=== PATIENT | male | born 1995 | race Caucasian/White ===

== ENCOUNTER 2018-04-01 08:15 | Emergency (ER) | payer BC ==
[2018-04-01] MEDS ORDERED: MAGNE/ALUM HYDROXD 30 ML UCUP ONE (08:37)
[2018-04-01 09:01] LABS: Absolute Lymphocytes (CBC) 1.9 K/uL (0.7-4.9); Absolute Monocytes 0.6 K/uL (0.1-1.3); Basophils % 0.7 % (0-1.3); Eosinophils % 1.7 % (0-4.4); Hematocrit 44.1 % (39.6-49.0); Lymphocytes % 28.4 % (15.3-44.8); MCH 30.9 pg (27.0-35.0); MCV 90.8 fL (80-100); MPV 8.2 fL (7.6-11.3); Monocytes % 8.4 % (3.3-12.3); RBC Red Blood Cell Count 4.86 M/uL (4.33-5.43)
[2018-04-01 09:23] LABS: ALT/SGPT 14 U/L (12-78); AST/SGOT 9 U/L (15-37); Albumin 4.2 g/dL (3.4-5.0); Alkaline Phosphatase 75 U/L (45-117); BUN Blood Urea Nitrogen 11 mg/dL (7-18); Bicarbonate 28 mmol/L (21-32); Bilirubin Direct 0.1 mg/dL (0-0.2); Bilirubin Total 0.4 mg/dL (0.2-1.0); Glucose Level 90 mg/dL (74-106); Lipase 278 U/L (73-393); Potassium 3.9 mmol/L (3.5-5.1); Protein, Total 7.7 g/dL (6.4-8.2); Sodium Level 141 mmol/L (136-145)
--- NOTE | 2018-04-01 09:39 | ER ---
Nurse's Notes [facility] Name: Osiel Elmore Age: 22 yrs Sex: Male : 1995 Arrival Date: 04/01/2018 Time: 08:18 Bed 15 Private MD: Buddy Andre Diagnosis: Upper abdominal pain, unspecified;Gastro-esophageal reflux disease Presentation: 04/01 08:25 Presenting complaint: Patient states: intermittent, RUQ pain that began 6-8 days ago. ss Pt reports he was seen by his PCP, had labs drawn and ultrasound of his gallbladder, which were negative. Pt was then referred to a GI specialist, but reports his pain was worse this morning, so he came to be evaluated. Transition of care: patient was not received from another setting of care. Onset of symptoms was March 24, 2018. Risk Assessment: Do you want to hurt yourself or someone else? Patient reports no desire to harm self or others. Initial Sepsis Screen: Does the patient meet any 2 criteria? No. Patient's initial sepsis screen is negative. Does the patient have a suspected source of infection? No. Patient's initial sepsis screen is negative. Care prior to arrival: None. 08:25 Method Of Arrival: Ambulatory 08:25 Acuity: PAVEL 3 ss Historical: - Allergies: 08:30 No Known Allergies; ss - Home Meds: 08:30 Valtrex Oral [Active]; ss - PMHx: 08:30 GERD; ss - PSHx: 08:30 pyloric stenosis correction at 2 months old; ss - Immunization history:: Adult Immunizations up to date. - Social history:: Smoking status: Patient uses tobacco products, smokes one-half pack cigarettes per day. - Ebola Screening: : Patient denies exposure to infectious person Patient denies travel to an Ebola-affected area in the 21 days before illness onset. - Family history:: not pertinent. - Hospitalizations: : No recent hospitalization is reported. Screenin:25 Abuse screen: Denies threats or abuse. Nutritional screening: No deficits noted. rb1 Tuberculosis screening: No symptoms or risk factors identified. Fall Risk None identified. Assessment: 08:25 General: Appears uncomfortable, slender, Behavior is calm, cooperative, Denies fever. rb1 Pain: Complains of pain in right upper quadrant Pain currently is 5 out of 10 on a pain scale. Neuro: Level of Consciousness is awake, alert, obeys commands, Oriented to person, place, time, situation. Cardiovascular: Capillary refill < 3 seconds is brisk in bilateral fingers. Respiratory: Airway is patent Respiratory effort is even, unlabored, Respiratory pattern is regular, symmetrical. GI: Bowel sounds present X 4 quads. Abd is soft Abdomen is tender to palpation in right upper quadrant Reports nausea, vomiting, since this morning. : No signs and/or symptoms were reported regarding the genitourinary system. Derm: Skin is pink, warm \T\ dry. Musculoskeletal: Range of motion: intact in all extremities. 09:23 Reassessment: Patient appears in no apparent distress at this time. Patient and/or rb1 family updated on plan of care and expected duration. Pain level reassessed. Patient is alert, oriented x 3, equal unlabored respirations, skin warm/dry/pink. Patient states symptoms have improved. 09:48 Reassessment: Dr. Grimaldo is at bedside. rb1 Vital Signs: 08:25 BP 126 / 85; Pulse 53; Resp 16; Temp 97.7(O); Pulse Ox 100% on R/A; Weight 56.7 kg (R); rb1 Height 5 ft. 10 in. (177.80 cm) (R); Pain 5/10; 09:22 BP 126 / 72; Pulse 54; Resp 16; Pulse Ox 100% on R/A; rb1 08:25 Body Mass Index 17.94 (56.70 kg, 177.80 cm) rb1 ED Course: 08:18 Patient arrived in ED. sb2 08:19 Buddy Andre MD is Private Physician. sb2 08:22 Evaristo Grimaldo MD is Attending Physician. rn 08:25 Arm band placed on right wrist. rb1 08:25 Patient has correct armband on for positive identification. Bed in low position. Call rb1 light in reach. Side rails up X 1. Pulse ox on. NIBP on. 08:29 Triage completed. ss 08:32 Amanda Garza, YAMILA is Primary Nurse. rb1 09:58 No provider procedures requiring assistance completed. IV discontinued, intact, rb1 bleeding controlled, No redness/swelling at site. Pressure dressing applied. Administered Medications: 08:35 Drug: GI Cocktail without - (Maalox Suspension 30 ml, Lidocaine Liquid 2 % 15 rb1 ml) Route: PO; 08:53 Follow up: Response: No adverse reaction; Marked relief of symptoms rb1 Outcome: 09:37 Discharge ordered by . rn 09:58 Discharged to home ambulatory, with family. rb1 :58 Condition: stable 09:58 Discharge instructions given to patient, Instructed on discharge instructions, follow up and referral plans. Demonstrated understanding of instructions, follow-up care, Prescriptions given X none 10:00 Patient left the ED. rb1 Signatures: Evaristo Grimaldo MD MD rn Smirch, Shelby, RN RN ss Amanda Garza RN RN rb1 Alessandra Sibley sb2
--- NOTE | 2018-04-01 09:39 | EDPHYS ---
Physician Documentation [facility] Name: Osiel Elmore Age: 22 yrs Sex: Male : 1995 Arrival Date: 04/01/2018 Time: 08:18 Bed 15 Private MD: Buddy Andre ED Physician Evaristo Grimaldo HPI: 04/01 08:55 This 22 yrs old Male presents to ER via Ambulatory with complaints of rn Abdominal Pain. 08:55 The patient presents with abdominal pain in the epigastric area, in the right upper rn quadrant. Onset: The symptoms/episode began/occurred 6 day(s) ago. The symptoms do not radiate. Associated signs and symptoms: Pertinent positives: diarrhea, Pertinent negatives: dysuria, fever, hematuria, testicular pain, vomiting. The symptoms are described as achy, intermittent. Modifying factors: The symptoms are alleviated by nothing, the symptoms are aggravated by food, touching the area. Severity of pain: At its worst the pain was mild in the emergency department the pain has improved. The patient has experienced similar episodes in the past. Reports RUQ/epigastric abd pain for 6 days, seen by pcp, u/s performed 4 days ago as outpt, negative, no fever, + diarrhea, non-bloody/not dark/black. Has has acid problems "for long time", doesn't take his antacids daily, pain worse approx 30 min after eating and in morning when wakes up.. Historical: - Allergies: 08:30 No Known Allergies; ss - Home Meds: 08:30 Valtrex Oral [Active]; ss - PMHx: 08:30 GERD; ss - PSHx: 08:30 pyloric stenosis correction at 2 months old; ss - Immunization history:: Adult Immunizations up to date. - Social history:: Smoking status: Patient uses tobacco products, smokes one-half pack cigarettes per day. - Ebola Screening: : Patient denies exposure to infectious person Patient denies travel to an Ebola-affected area in the 21 days before illness onset. - Family history:: not pertinent. - Hospitalizations: : No recent hospitalization is reported. ROS: 08:55 Constitutional: Negative for fever, chills, and weight loss, Eyes: Negative for injury, rn pain, redness, and discharge, Cardiovascular: Negative for chest pain, palpitations, and edema, Respiratory: Negative for shortness of breath, cough, wheezing, and pleuritic chest pain, Abdomen/GI: Negative for nausea, vomiting, and constipation, Back: Negative for injury and pain, MS/Extremity: Negative for injury and deformity, Skin: Negative for injury, rash, and discoloration, Neuro: Negative for headache, weakness, numbness, tingling, and seizure. Exam: 08:55 Constitutional: This is a well developed, well nourished patient who is awake, alert, rn and in no acute distress. Head/Face: Normocephalic, atraumatic. Eyes: Pupils equal round and reactive to light, extra-ocular motions intact. Lids and lashes normal. Conjunctiva and sclera are non-icteric and not injected. Cornea within normal limits. Periorbital areas with no swelling, redness, or edema. Cardiovascular: Regular rate and rhythm with a normal S1 and S2. No gallops, murmurs, or rubs. Normal PMI, no JVD. No pulse deficits. Respiratory: Lungs have equal breath sounds bilaterally, clear to auscultation and percussion. No rales, rhonchi or wheezes noted. No increased work of breathing, no retractions or nasal flaring. Abdomen/GI: Soft, non-tender, with normal bowel sounds. No distension or tympany. No guarding or rebound. No evidence of tenderness throughout. MS/ Extremity: Pulses equal, no cyanosis. Neurovascular intact. Full, normal range of motion. Equal circumference. Neuro: Awake and alert, GCS 15 Vital Signs: 08:25 BP 126 / 85; Pulse 53; Resp 16; Temp 97.7(O); Pulse Ox 100% on R/A; Weight 56.7 kg (R); rb1 Height 5 ft. 10 in. (177.80 cm) (R); Pain 5/10; 09:22 BP 126 / 72; Pulse 54; Resp 16; Pulse Ox 100% on R/A; rb1 08:25 Body Mass Index 17.94 (56.70 kg, 177.80 cm) rb1 MDM: 08:22 Patient medically screened. rn 08:32 ED course: Neg U/S on 03/28/2018.. rn 09:36 Differential diagnosis: gastritis, gastroesophageal reflux disease, Peptic Ulcer rn Disease. Data reviewed: vital signs, nurses notes, lab test result(s), and as a result, I will discharge patient. Counseling: I had a detailed discussion with the patient and/or guardian regarding: the historical points, exam findings, and any diagnostic results supporting the discharge/admit diagnosis, lab results, the need for outpatient follow up, to return to the emergency department if symptoms worsen or persist or if there are any questions or concerns that arise at home. Special discussion: I discussed with the patient/guardian in detail that at this point there is no indication for admission to the hospital. It is understood, however, that if the symptoms persist or worsen the patient needs to return immediately for re-evaluation. Based on the history and exam findings, there is no indication for further emergent testing or inpatient evaluation. I discussed with the patient/guardian the need to see the hotel maintenance technician for further evaluation of the symptoms. ED course: Has f/u with GI, most likely PUD or ulcer in this patient with hx of GERD and not taking his antacids, return precautions given and understood. . 04/01 08:31 Order name: Basic Metabolic Panel; Complete Time: 09:36 rn 04/01 08:31 Order name: CBC with Diff; Complete Time: 09:10 rn 04/01 08:31 Order name: Hepatic Function; Complete Time: 09:36 rn 04/01 08:31 Order name: Lipase; Complete Time: 09:36 rn 04/01 08:31 Order name: IV Saline Lock; Complete Time: 08:59 rn 04/01 08:31 Order name: Labs collected and sent; Complete Time: 08:59 rn Administered Medications: 08:35 Drug: GI Cocktail without - (Maalox Suspension 30 ml, Lidocaine Liquid 2 % 15 rb1 ml) Route: PO; 08:53 Follow up: Response: No adverse reaction; Marked relief of symptoms rb1 Disposition: 04/01/18 09:37 Discharged to Home. Impression: Upper abdominal pain, unspecified, Gastro-esophageal reflux disease. - Condition is Stable. - Discharge Instructions: Abdominal Pain, Adult, Gastroesophageal Reflux Disease, Adult, Peptic Ulcer. - Medication Reconciliation Form, Thank You Letter, Antibiotic Education, Prescription Opioid Use form. - Follow up: Private Physician; When: As needed; Reason: Recheck today's complaints, Re-evaluation by your physician. - Problem is new. - Symptoms have improved. Signatures: Dispatcher [employer] EDMS Grimaldo, Evaristo, MD MD rn Smirch, Matilda, RN RN ss Amanda Garza RN RN rb1 Corrections: (The following items were deleted from the chart) 10:00 09:37 04/01/2018 09:37 Discharged to Home. Impression: Upper abdominal pain, rb1 unspecified; Gastro-esophageal reflux disease. Condition is Stable. Forms are Medication Reconciliation Form, Thank You Letter, Antibiotic Education, Prescription Opioid Use. Follow up: Private Physician; When: As needed; Reason: Recheck today's complaints, Re-evaluation by your physician. Problem is new. Symptoms have improved. rn
== END 2018-04-01 10:00 | disposition home or self-care (01) ==
LOC: ER 08:15
DX: R10.13 Epigastric pain (principal); K21.9 Gastro-esophageal reflux disease without esophagitis; F17.210 Nicotine dependence, cigarettes, uncomplicated
CPT/HCPCS: 36415; 80048; 80076; 83690; 85025; 99283

== ENCOUNTER 2024-02-17 06:00 | Emergency (ER) | payer BC, SELFPAY ==
--- OUTSIDE RECORDS SUMMARY | 2024-02-17 06:04 | XMS REPORT | Continuity of Care Document ---
Author Name Unknown Address [address] [facility] [address]. [address] [place] [address] [facility] thconnect Address [address] [facility]. 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 Name Role Phone MD Roula Primary Care Physician Unavailab sydney [email or web address] Attending Clinician Unavailable [email or web address] Attending Clinician Unavailable Alden Reid MA Attending Clinician Unavailrosi Lino MD, Myranda Attending Clinician Doctor Unassigned, [place] Attending Clinician U STANISLAV Thompson Attending Clinician Unavailab ALON Artis Attending Clinician UnavailALON Parikh Attending Clinician Unavailab RAE Ho Attending Clinician Unavailable Ramon DRISCOLL, Naveed Kwong Attending Clinician Unavaila Santana Mesa MA Attending Clinician Unava Piper Llanes LVN Attending Clinician UnaRae Watkins LCSW Attending Clinician [phone] [facility] Attending Clinician Unavailable Deepak Perez MD Attending Clinician DEEPAK PEREZ Attending Clinician Unavailrosi Maxwell RN, Alisha Ayala Attending Clinician Louise Albert MD, Leanne Attending Clinician Luh Perez CMA Attending Clinician Hill Mejia MD, Roula Attending Clinician Wilfred Tsai MD Attending Clinician Unavaila raissa Fernández MD, Lizeth Funes Attending Clinician [phone] CAPRICE BULLARD Attending Clinician Unavailable DAYANA ESQUIVEL Attending Clinician Unavailable JEANIE HARRISON Attending Clinician Unavailable Lab, Adc Fam Pob I Attending Clinician Unavailab Jeanie Cohn Attending Clinician STANISLAV GONZALES Admitting Clinician Unavailab DEEPAK Mandel Admitting Clinician Unavailrosi Albert MD, Leanne Unavailable Roberto MOTTA, Roula Unavailable [phone] Payers Payer Name Policy Type Policy Number Effective Date Expirati on Date Source [place] 0- 100% P [id number] 2022 00:00:00 2023 00:00:00 [place] 0- 100% P [id number] 2022 00:00:00 2023 00:00:00 [place] 0- 100% S [id number] 2022 00:00:00 2023 00:00:00 [place] White 0- 100% P [id number] 2022 00:00:00 [facility] [id number] 2019 00:00:00 Problems Condition Name Condition Details Condition Category Status Onset Date Resolution Date Last Treatment Date Treating Clinician Comments Source Special screening examinatio n for other specified viral diseases Condition Active 04-11 00:00: 00 2023-04-11 12:31:31 Leanne Albert [facility] Adult Medicin e Blood in stool Condition Active 10-08 00:00: 00 2022-10-08 09:30:10 Roberto, Roula [facility] HIV infection Condition Active 2021-09 00:00: 00 2022-10-08 09:16:46 Roberto, Roula [facility] Anxiety disorder NOS Condition Active 2021-09 00:00: 00 2022-07-09 13:21:44 Roberto, Roula [facility] Preventive health care, adult Condition Active 2021-09 00:00: 00 2022-07-09 13:21:44 Roberto, Roula [facility] Medication , long-term use Condition Active 2021-09 00:00: 00 2022-07-09 13:21:44 Roberto, Roula [facility] Chronic diarrhea Condition Active 2021-09 00:00: 00 2022-10-08 09:16:46 Roberto, Roula [facility] Gastritis Condition Active 2021-09 00:00: 00 2022-10-08 09:16:46 Roberto, Roula [facility] No known active problems No known active problems Disease Leandra Rojas History of Past Illness Condition Name Condition Details Condition Category Status Onset Date Resolution Date Last Treatment Date Treating Clinician Comments Source Nausea Condition Inactiv e 10-08 00:00: 00 2023-04-11 00:00:00 2023-04-11 12:31:31 Leanne Albert [facility] Allergies, Adverse Reactions, Alerts Allergy Name Allergy Type Status Severity Reaction(s) Onset Date Inactive Date Treating Clinician Comments Source Iodine Propensi ty to adverse reaction s Active Itching 2022-09 00:00: 00 [facility] IODINE DRUG INGREDI Active High Hives 2022-09 00:00: 00 [facility] NO KNOWN ALLERGIE S Drug Class Active [facility] Social History Social Habit Start Date Stop Date Quantity Comments Source Exposure to SARS-CoV-2 (event) Not sure Leandra miller History of tobacco use Passive smoker [facility] Gender identity [facility] Alcohol intake 2023-07-29 00:00:00 2023-07-29 00:00:00 Lifetime non-drinker (finding) [facility] Alcoholic beverage intake 2023-07-29 00:00:00 2023-07-29 00:00:00 Lifetime non-drinker (finding) [facility] Cigarettes smoked current (pack per day) - Reported 2023-05-10 00:00:00 2023-05-10 00:00:00 [facility] Tobacco use and exposure 2023-05-10 00:00:00 2023-05-10 00:00:00 Smokeless tobacco non-user [facility] History of Social function 2023-05-02 00:00:00 2023-05-02 00:00:00 [facility] is there any chance that you could be ? 2023-04-11 12:16:46 2023-04-11 12:16:46 No [facility] PHQ2 Questionairre Score 2023-04-11 12:16:46 2023-04-11 12:16:46 [facility] drug use 2023-04-11 12:16:46 2023-04-11 12:16:46 Currently [facility] social history reviewed E&M 2023-04-11 12:16:46 2023-04-11 12:16:46 reviewed today [facility] if the patient is using/has used a vaping item, Current, Former, Never Used, Not asked 2023-04-11 12:16:46 2023-04-11 12:16:46 No [facility] alcohol use 2023-04-11 12:16:46 2023-04-11 12:16:46 Currently [facility] albumin, serum 2023-02-21 16:13:00 2023-02-21 16:13:00 4.4 g/dL [facility] condom use 2022-10-08 08:47:42 2022-10-08 08:47:42 Sometimes [facility] number of sexual partners in last year 2022-10-08 08:47:42 2022-10-08 08:47:42 [facility] Ever had sexual intercourse? 2022-10-08 08:47:42 2022-10-08 08:47:42 Yes [facility] passive cigarette smoke exposure 2022-10-08 08:47:42 2022-10-08 08:47:42 LA32-8 [facility] tobacco use (cigarettes, cigar, chew, pipe) 2022-10-08 08:47:42 2022-10-08 08:47:42 Currently [facility] sexual orientation 2022-07-09 12:18:51 2022-07-09 12:18:51 Lesbian, bustamante or homosexual [facility] drug use, illicit, drug of choice 2022-07-09 12:18:51 2022-07-09 12:18:51 marijuana [facility] alcohol use, frequency 2022-07-09 12:18:51 2022-07-09 12:18:51 holidays/special occasions only [facility] 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 2022-06-18 10:33:44 2022-06-18 10:33:44 verse [facility] Category for Work 2022-06-18 10:33:44 2022-06-18 10:33:44 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 Ordering Clinician Indication Dosage Frequency Signature (SIG) Comments Components Source methylPREDN ISolone sodium succinate (SOLU-MEDRO L) injection 125 mg 2022-09 22:30: 00 06-21 22:30 :00 No 125mg 125 mg, Slow IV Push, ONCE, 1 dose, On Sat06/21/23 at 1730, Routine [facility] diphenhydrA MINE (BENADRYL) injection 25 mg 2022-09 21:45: 00 06-21 21:35 :00 No 25mg 25 mg, Slow IV Push, ONCE, 1 dose, On Sat06/21/23 at 1645, STAT [facility] iopamidol (ISOVUE 370-500 mL) injection 65 mL 2022-09 21:20: 00 06-21 21:21 :00 No [id number] 65mL 65 mL, Intravenou s, ONCE, 1 dose, On Sat06/21/23 at 1645, Routine [facility] NaCl 0.9% (NS) bolus infusion 1,000 mL 2022-09 21:15: 00 06-21 22:37 :00 No 1000mL at 999 mL/hr, 1,000 mL, IV Infusion, ONCE, 1 dose, On Sat06/21/23 at 1615, TYRONE [facility] ondansetron (ZOFRAN (PF)) injection 4 mg 2022-09 20:30: 00 06-21 21:35 :00 No 4mg 4 mg, Slow IV Push, ONCE, 1 dose, On Sat06/21/23 at 1530[facility] disintegrat ing tablet 2022-09 00:00: 00 Yes [id number] 4mg Take 1 tablet by mouth every 8 (eight) hours as needed for Nausea and Vomiting (N/V). [facility] amoxicillin -clavulanat e 875-125 mg per tablet 2022-09 00:00: 00 07-02 04:59 :00 No [id number] 1{tbl} Take 1 tablet by mouth every 12 (twelve) hours for 10 days. [facility] bictegrav-e mtricit-ten ofov ala 50-200-25 mg tablet 04-26 00:00: 00 Yes [id number] 1{tbl} Take 1 tablet by mouth in the morning. [facility] PAXLOVID (300/100) (NIRMATRELV IR-RITONAVI R) 20 x 150 MG & 10 x 100MG TBPK 04-11 00:00: 00 Yes Leanne Albert MD 3 Take 3 tablet by mouth twice a day Take all contents of ONE blister pack together as a single dose. Each blister pack = 3 tablets [facility] (ONDANSETRO N) 4 MG TBDP 1- 00:00: 00 Yes Roula Mejia MD 1 1 tablet on tongue twice a day only as needed for nausea or vomiting [facility] MYTESI (CROFELEMER ) 125 MG [facility] 2021-09 13:14: 39 Yes by mouth once a day [facility] BIKTARVY (BICTEGRAVI R-EMTRICITA B-TENOFOV) 50-200-25 MG TABS 2021-09 00:00: 00 Yes Roula Mejia MD 1 1 tablet by mouth once a day [facility] (PANTOPRAZO LE SODIUM) 40 MG [facility] 2021-09 00:00: 00 Yes Roula Mejia MD 1 1 tablet by mouth once a day before food [facility] VALACYCLOVI R HCL OR 2020-09 11:17: 27 06-19 00:00 :00 No 1g Take 1 g by mouth 2 times daily Leandra Rojas Valacyclovi r HCl 1 g oral Tablet 2020-09 00:00: 00 Yes [id number] 1000mg Take 1 tablet (1,000 mg total) by mouth 2 times daily Leandra Rojas Bictegravir -Emtricitab -Tenofov (Biktarvy) 50-200-25 MG oral Tablet 2018-09 00:00: 00 Yes Leandra Rojas Immunizations Ordered Immunization Name Filled Immunization Name Date Status Comments Source Twinrix (hep a/hep b) 2023-05-10 00:00:00 Completed [facility] Twinrix (hep a/hep b) 2023-05-10 00:00:00 Completed [facility] Twinrix (hep a/hep b) 2023-05-10 00:00:00 Completed [facility] Twinrix (hep a/hep b) 2023-05-10 00:00:00 Completed [facility] Twinrix (hep a/hep b) 2023-05-10 00:00:00 Completed [facility] Twinrix (hep a/hep b) 2023-05-10 00:00:00 Completed [facility] Twinrix (hep a/hep b) Unknown Completed [facility] Twinrix (hep a/hep b) Unknown Completed [facility] Twinrix (hep a/hep b) Unknown Completed [facility] Twinrix (hep a/hep b) Unknown Completed [facility] Twinrix (hep a/hep b) Unknown Completed [facility] Twinrix (hep a/hep b) Unknown Completed [facility] Twinrix (hep a/hep b) Unknown Completed [facility] Twinrix (hep a/hep b) Unknown Completed [facility] Twinrix (hep a/hep b) Unknown Completed [facility] Twinrix (hep a/hep b) Unknown Completed [facility] Vital Signs Vital Name Observation Time Observation Value Comments S ource Systolic blood pressure 2023-06-21 22:15:30 125 mm[Hg] [facility] Diastolic blood pressure 2023-06-21 22:15:30 78 mm[Hg] [facility] Heart rate 2023-06-21 22:15:30 81 /min [facility] Body temperature 2023-06-21 22:15:30 37.06 Katherin [facility] Respiratory rate 2023-06-21 22:15:30 16 /min [facility] Oxygen saturation in Arterial blood by Pulse oximetry 2023-06-21 22:00:00 97 /min [facility] Body height 2023-06-21 20:14:00 172.7 cm [facility] Body weight 2023-06-21 20:14:00 56.7 kg [facility] BMI 2023-06-21 20:14:00 19.01 kg/m2 [facility] Systolic blood pressure 2023-05-10 15:37:00 101 mm[Hg] [facility] Diastolic blood pressure 2023-05-10 15:37:00 65 mm[Hg] [facility] Heart rate 2023-05-10 15:37:00 74 /min [facility] Body temperature 2023-05-10 15:37:00 36.44 Katherin [facility] Respiratory rate 2023-05-10 15:37:00 20 /min [facility] Body height 2023-05-10 15:37:00 175.3 cm [facility] Body weight 2023-05-10 15:37:00 54.25 kg [facility] BMI 2023-05-10 15:37:00 17.66 kg/m2 [facility] Oxygen saturation in Arterial blood by Pulse oximetry 2023-05-10 15:37:00 98 /min [facility] Systolic blood pressure 2023-04-26 14:24:00 100 mm[Hg] [facility] Diastolic blood pressure 2023-04-26 14:24:00 59 mm[Hg] [facility] Heart rate 2023-04-26 14:24:00 61 /min [facility] Body temperature 2023-04-26 14:24:00 36.17 Katheirn [facility] Respiratory rate 2023-04-26 14:24:00 18 /min [facility] Body height 2023-04-26 14:24:00 177.8 cm [facility] Body weight 2023-04-26 14:24:00 55.838 kg [facility] BMI 2023-04-26 14:24:00 17.66 kg/m2 [facility] Oxygen saturation in Arterial blood by Pulse oximetry 2023-04-26 14:24:00 98 /min room air [facility] Systolic blood pressure 2021-06-19 15:35:00 104 mm[Hg] [facility]andra [facility] Diastolic blood pressure 2021-06-19 15:35:00 70 mm[Hg] Leandra Sharp ld Heart rate 2021-06-19 15:35:00 68 /min Jon campbell Seybold Body temperature 2021-06-19 15:35:00 36.5 Katherin Leandra angela Respiratory rate 2021-06-19 15:35:00 16 /min Leandra Rojas Body height 2021-06-19 15:35:00 175.3 cm Ann Rojas Body weight 2021-06-19 15:35:00 55.339 kg Ann Rojas BMI 2021-06-19 15:35:00 18.02 kg/m2 Ann Rojas height in centimeters E&M 2023-04-11 12:16:46 [facility]&M 2022-10-08 08:47:42 97.7 [degF] [facility] Diastolic blood pressure 2022-10-08 08:47:42 56 mm[Hg] [facility]olic blood [facility] 2022-10-08 08:47:42 117 mm[Hg] [facility] respiratory rate E&M 2022-10-08 08:47:42 14 /min [facility] pulse rate 2022-10-08 08:47:42 74 /[facility] BMI (body mass index) percentile 2022-10-08 08:47:42 n/a [facility] Body Mass Index (Ratio) 2022-10-08 08:47:42 18.73 kg/m2 [facility] weight E&M 2022-10-08 08:47:42 126.38 [lb_av] L [facility] weight in kilograms E&M 2022-10-08 08:47:42 57.45 kg [facility] temperature site 2022-10-08 08:47:42 oral [facility] height in centimeters E&M 2022-10-08 08:47:42 175.26 cm [facility] Diastolic blood pressure 2022-07-09 12:18:51 65 mm[Hg] [facility] Systolic blood pressure 2022-07-09 12:18:51 103 mm[Hg] [facility] rate E&M 2022-07-09 12:18:51 18 /min [facility] pulse rate 2022-07-09 12:18:51 67 /min [facility] temperature E&M 2022-07-09 12:18:51 98.1 [degF] [facility] BMI (body mass index) percentile 2022-07-09 12:18:51 n/a [facility] Body Mass Index (Ratio) 2022-07-09 12:18:51 17.99 kg/m2 [facility] weight E&M 2022-07-09 12:18:51 121.40 [lb_av] L egacy [facility] weight in kilograms E&M 2022-07-09 12:18:51 55.18 [facility] 2022-07-09 12:18:51 [facility] height in centimeters E&M 2022-07-09 12:18:51 [facility] blood pressure 2022-06-18 10:33:44 67 mm[Hg] [facility] Systolic blood pressure 2022-06-18 10:33:44 127 mm[Hg] [facility] respiratory rate E&M 2022-06-18 10:33:44 18 /min [facility] pulse rate 2022-06-18 10:33:44 73 /min [facility] 2022-06-18 10:33:44 oral [facility] temperature E&M 2022-06-18 10:33:44 98.3 [degF] [facility] BMI (body mass index) percentile 2022-06-18 10:33:44 n/a [facility] Body Mass Index (Ratio) 2022-06-18 10:33:44 17.93 kg/m2 [facility] weight E&M 2022-06-18 10:33:44 121 [lb_av] [facility] weight in kilograms E&M 2022-06-18 10:33:44 55 kg [facility] height in centimeters E&M 2022-06-18 10:33:44 175.26 [facility] Procedures Procedure Date / Time Performed Performing Clinician Source [facility] CONSENT FOR FREE TREATMENT FORM 2023-07-01 20:56:58 Doctor Unassigned, [place] [facility] CT ABDOMEN PELVIS W CONTRAST 2023-06-21 21:30:00 Stanislav Gonzales [facility] LIPASE 2023-06-21 21:08:[address] [facility] COMP. METABOLIC PANEL ([id number]) 2023-06-21 21:08:00 Stanislav Gonzales [facility] CBC WITH DIFF 2023-06-21 21:08:00 [facility] 2023-06-21 21:08:[address] Un [facility] ASSIGNMENT OF BENEFITS 2023-06-21 20:58:12 Docto r Unassigned, [place] [facility] CONSENT/REFUSAL FOR DIAGNOSIS AND TREATMENT 2023-06-21 20:02:30 Doctor Unassigned, [place] [facility] NOTICE OF PRIVACY PRACTICES 2023-06-21 20:01:59 Doctor Unassigned, [place] [facility] US ABDOMEN LIMITED 2023-05-15 17:50:34 Cullen Euceda [facility] XR KUB 2023-05-10 17:40:[address] [facility] TWINRIX (HEP A/HEP B)VACCINE 2023-05-10 16:35:50 Alon Euceda [facility] CONSENT/REFUSAL FOR DIAGNOSIS AND TREATMENT 2023-04-29 13:43:26 Doctor Unassigned, [place] [facility] ID NOW COVID-19- In House 2023-04-11 12:28:22 [facility] 2022-07-09 13:15:55 Roula Mejia [facility] Integrated Behavioral Health Assessment (IBH) 2022-07-09 13:15:55 Roula Mejia [facility] Prescription Assistance (HIV - URGENT) 2022-07-09 13:15:08 Roula Mejia [facility] Encounters Start Date/Time End Date/Time Encounter Type Admission Type Attending Clinicians Care Facility Care Department Encounter ID Source 2023-07-19 15:16:19 Outpatient HCN HCN [id number] [facility] 2023-05-20 08:39:02 Outpatient lc.msunil [facility] [id number] [facility] 2023-05-16 05:03:33 [facility] [id number] [facility] 2023-03-07 12:15:03 Outpatient lc.msunil [facility] [id number] [facility] 2023-03-06 15:33:03 Outpatient lc.msunil [facility] [id number] [facility] 2023-03-04 14:03:05 Outpatient lc.msunil [facility] [id number] [facility] 2023-02-21 14:35:09 Outpatient lc.msunil [facility] [id number] [facility] 2023-02-08 14:01:06 Outpatient lc.msunil [facility] [id number] [facility] 2023-01-25 11:07:09 Outpatient lc.msunil [facility] [id number] [facility] 2023-01-22 08:27:04 Outpatient lc.msunil [facility] [id number] [facility] 2023-01-04 10:01:04 Outpatient lc.msunil [facility] [id number] [facility] 2023-01-02 06:29:04 Outpatient lc.msunil [facility] [id number] [facility] 2022-11-19 16:49:02 Outpatient lc.msunil [facility] [id number] [facility] 2022-11-08 09:31:17 Outpatient lc.msunil [facility] [id number] [facility] 2022-10-04 15:59:04 Outpatient lc.msunil [facility] [id number] [facility] 2022-07-31 09:49:10 Outpatient lc.msunil [facility] [id number] [facility] 2022-07-16 16:53:03 Outpatient lc.msunil [facility] [id number] [facility] 2022-07-13 12:47:08 Outpatient lc.msunil [facility] [id number] [facility] 2022-07-05 10:55:10 Outpatient lc.nyarp [facility] [id number] [facility] 2022-06-26 08:59:05 Outpatient lc.nyarp [facility] [id number] [facility] 2022-06-19 15:11:30 Outpatient lc.nyarp [facility] [id number] [facility] 2022-06-15 14:33:06 Outpatient lc.nyarp [facility] [id number] [facility] 2022-06-14 14:43:07 Outpatient [facility] [id number] [facility] 2024-01-07 00:00:00 2024-02-14 12:21:21 Case Management Alden Reid [facility] 1..114 [id number] [facility] 2023-12-17 00:00:00 2023-12-17 00:00:00 Case Management Alden Reid [facility] [id number] [id number] [facility] 2023-11-29 00:00:00 2023-11-29 00:00:00 Case Management Alden Reid [facility] [id number] [facility] 2023-07-29 00:00:00 2023-07-29 00:00:00 Outpatient [facility] [id number] [facility] 2023-07-12 00:00:00 2023-07-12 00:00:00 Telephone Myranda Lino [facility] [id number] [id number] [facility] 2023-07-09 00:00:00 2023-07-09 00:00:00 Case Management Alden Reid [facility] 1..114 [id number] [facility] 2023-07-01 00:00:00 2023-07-01 00:00:00 Outpatient [facility] [id number] [facility] 2023-07-01 00:00:00 2023-07-01 00:00:00 Orders Only Doctor Unassigned, [place] [facility] 1..114 [id number] [facility] 2023-06-21 15:16:00 2023-06-21 18:53:00 Emergency X ADEBRANDON OGIL [facility] ERT [id number] [facility] 2023-06-21 15:16:00 2023-06-21 18:53:00 Emergency AderiBrandon raymondil [facility] 1..114 350.1.13.10 4.2.7.2.686 [id number] [facility] 2023-06-21 16:00:00 2023-06-21 16:00:00 Outpatient ALON ACEVEDO [facility]RI[facility] [id number] [facility] 2023-06-06 11:00:00 2023-06-06 11:00:00 Outpatient RAE SHANNON [facility] [id number] [facility] 2023-06-06 00:00:00 2023-06-06 00:00:00 Case Management Alden Reid [facility] 1.2.840.114 350.1.13.10 4.2.7.2.686 [id number] [facility] 2023-06-06 00:00:00 2023-06-06 00:00:00 Case Management Naveed Navarro [facility] 1.2.840.114 350.1.13.10 4.2.7.2.686 [id number] [facility] 2023-06-04 00:00:00 2023-06-04 00:00:00 Case Management Yoni [facility] 1.2.840.114 350.1.13.10 4.2.7.2.686 [id number] [facility] 2023-05-16 00:00:00 2023-05-16 00:00:00 Case Management Naveed Navarro [facility] 1.2.840.114 350.1.13.10 4.2.7.2.686 [id number] [facility] 2023-05-16 00:00:00 2023-05-16 00:00:00 Case Management Yoni [facility] 1.2.840.114 350.1.13.10 4.2.7.2.686 [id number] [facility] 2023-05-15 12:32:38 2023-05-15 23:59:00 Outpatient ALON ACEVEDO [facility] [id number] [facility] 2023-05-15 12:32:38 2023-05-15 23:59:00 Hospital Encounter Ok [facility] 1.2.840.114 350.1.13.10 4.2.7.2.686 [id number] [facility] 2023-05-10 12:07:43 2023-05-10 23:59:00 Hospital Encounter [facility] 1.2.840.114 350.1.13.10 4.2.7.2.686 [id number] [facility] 2023-05-10 10:30:00 2023-05-10 11:00:00 [facility] 1.2.840.114 350.1.13.10 4.2.7.2.686 [id number] [id number] [facility] 2023-05-10 10:30:00 2023-05-10 10:30:00 [facility] [id number] [facility] 2023-05-10 00:00:00 2023-05-10 00:00:00 [facility] 1.2.840.114 350.1.13.10 4.2.7.2.686 [id number] [facility] 2023-05-09 00:00:00 2023-05-09 00:00:00 Case Management [facility] 1.2.840.114 350.1.13.10 4.2.7.2.686 [id number] [facility] 2023-05-07 00:00:00 2023-05-07 00:00:00 Case Management Santana Vallejo [facility] 1.2.840.114 350.1.13.10 4.2.7.2.686 [id number] [facility] 2023-05-07 00:00:00 2023-05-07 00:00:00 Case Management Piper Neumann [facility] 1.0.114 350.1.13.10 4.2.7.2.686 [id number] [id number] [facility] 2023-05-02 09:00:00 2023-05-02 10:00:00 Office Visit Rae Doss [facility] 1..114 350.1.13.10 4.2.7.2.686 [id number] 089 [id number] [facility] 2023-05-02 09:00:00 2023-05-02 09:00:00 Outpatient RAE SHANNON [facility] [id number] [facility] 2023-04-29 08:00:00 2023-04-29 08:15:00 [employer] C[employer] Visit [facility] Alon Euceda [facility] 1..114 350.1.13.10 4.2.7.2.686 [id number] [facility] 2023-04-29 08:00:00 2023-04-29 08:00:00 [facility] [id number] [facility] 2023-04-29 00:00:00 2023-04-29 00:00:00 Orders Only Doctor Unassigned, [place] [facility] 1.0.114 350.1.13.10 4.2.7.2.686 [id number] [facility] 2023-04-28 08:46:00 2023-04-28 23:59:00 Hospital Encounter Deepak Perez [facility] 1.0.114 350.1.13.10 4.2.7.2.686 [id number] [facility] 2023-04-28 00:00:00 2023-04-28 23:59:00 Outpatient R DEEPAK PEREZ [facility] [id number] [facility] 2023-04-26 12:30:00 2023-04-26 12:45:00 [employer] Visit [facility] 1.840.114 350.1.13.10 4.2.7.2.686 [id number] [facility] 2023-04-26 09:00:00 2023-04-26 10:00:00 [facility] 1..114 350.1.13.10 4.2.7.2.686 [id number] [facility] 2023-04-26 09:00:00 2023-04-26 09:00:00 Outpatient R [facility] [id number] [facility] 2023-04-26 00:00:00 2023-04-26 00:00:00 Case Management Naveed Navarro [facility] 1.0.114 350.1.13.10 4.2.7.2.686 [id number] [id number] [facility] 2023-04-26 00:00:00 2023-04-26 00:00:00 Case Management Alden Reid [facility] 1.840.114 350.1.13.10 4.2.7.2.686 [id number] [facility] 2023-04-23 00:00:00 2023-04-23 00:00:00 Case Management Alisha Maxwell R [facility] 1.840.114 350.1.13.10 4.2.7.2.686 [id number] [id number] [facility] 2023-04-11 00:00:00 2023-04-11 00:00:00 In-person encounter Leanne Albert Blanca [facility] Adult Medicine Encounter/ [id number] [facility] 2023-04-11 00:00:00 2023-04-11 00:00:00 In-person encounter Leanne Albert Blanca [facility] Adult Medicine [id number] [facility] 2022-10-08 00:00:00 2022-10-08 00:00:00 In-person encounter Roula Mejia, Yoselin Perez, Mara Thomas, Breana Rosa [facility] Adult Medicine [id number] [facility]22-[facility] 00:00:00 2022-10-08 00:00:00 In-person encounter Roula Mejia Valencia Hawkins, Terrnisha [facility] Adult Medicine Encounter/ [id number] [facility] 2022-07-09 00:00:00 2022-07-09 00:00:00 In-person encounter Roula Mejia Angela Velazquez, Barbara Demarco, Debbie Moran Jameka [facility] Adult Medicine [id number] [facility] 2022-07-09 00:00:00 2022-07-09 00:00:00 In-person encounter Roula Mejia Valencia Armstrong, Jameka [facility] Adult Medicine Encounter/ [id number] [facility] 2022-06-18 00:00:00 2022-06-20 00:00:00 In-person encounter Wilfred Tsai Jameka [facility] Adult Medicine Encounter/ [id number] [facility] 2021-06-19 10:33:56 2021-06-19 11:03:56 Office Visit Lizeth Fernández 1.2.840.114 350.1.13.13 1.2.7.2.686 [id number] Leandra Rojas 2021-06-19 09:30:00 2021-06-19 09:30:00 Outpatient CAPRICE RAMIREZ [facility] [id number] [facility] 2020-12-22 09:30:00 2020-12-22 09:30:00 Outpatient DAYANA ESQUIVEL [id number] Leandra Rojas 2020-08-13 17:40:00 2020-08-13 17:40:00 Outpatient Lucy [facility] [id number] [facility] 2020-08-13 17:16:07 2020-08-13 17:36:07 Laboratory Only Lab, Adc Fam Pob Dot [facility] Office Building One 1.840.114 350.1.13.10 4.2.7.2.686 [id number] [facility] 2020-08-13 00:00:00 2020-08-13 00:00:00 Letter (Out) Doctor Unassigned, [place] [facility] 1.840.114 350.1.13.10 4.2.7.2.686 [id number] [facility] Results Test Description Test Time Test Comments Results Result Co mments Source [facility] 21:36:09* Test Item Value Reference Range Interpretation Comme nts LIPASE (test code = 2326605352) 44 U/L 0-220 Lab Interpretation (test cod e = 09524-4) Normal [facility] WITH [id number] 21:25:05* Test Item Value Reference Range Interpretation Comme nts WBC (test code = 6690-2) 11.36 See_Comment H [Automated messa ge] The system which generated this result transmitted reference range: 4.20 - 10.70 10*3/?L. The reference range was not used to interpret this result as normal/abnormal. RBC (test code = 789-8) 4.71 See_Comment [Automated messa ge] The system which generated this result transmitted reference range: 4.26 - 5.52 10*6/?L. The reference range was not used to interpret this result as normal/abnormal. HGB (test code = 718-7) 14.7 g/dL 12.2-16.4 HCT (test code = 4544-3) 43.7 % 38.4-49.3 MCV (test code = 787-2) 92.8 fL 81.7-95.6 MCH (test code = 785-6) 31.2 pg 26.1-32.7 MCHC (test code = 786-4) 33.6 g/dL 31.2-35.0 RDW-SD (test code = 75669-8) 44.0 fL 38.5-51.6 RDW-CV (test code = 788-0) 12.8 % 12.1-15.4 PLT (test code = 777-3) 248 See_Comment [Automated Recondoa ge] The system which generated this result transmitted reference range: 150 - 328 10*3/?L. The reference range was not used to interpret this result as normal/abnormal. MPV (test code = 85722-7) 9.5 fL 9.8-13.0 L NRBC/100 WBC (test code = 2376589738) 0.0 See_Comment [Automated Definicare ssage] The system which generated this result transmitted reference range: 0.0 - 10.0 /100 WBCs. The reference range was not used to interpret this result as normal/abnormal. NRBC x10^3 (test code = 9359513086) See_Comment [Automated Recondoa ge] The system which generated this result transmitted reference range: 10*3/?L. The reference range was not used to interpret this result as normal/abnormal. GRAN MAT (NEUT) % (test code = 770-8) 70.8 % IMM GRAN % (test code = 4539322290) 0.40 % LYMPH % (test code = 736-9) 21.7 % MONO % (test code = 5905-5) 5.8 % EOS % (test code = 713-8) 0.9 % BASO % (test code = 706-2) 0.4 % GRAN MAT x10^3(ANC) (test code = 1406537166) 8.06 10*3/uL 1.99-6.95 H IMM GRAN x10^3 (test code = 8902019762) 0.04 10*3/uL 0.00-0.06 LYMPH x10^3 (test code = 731-0) 2.46 10*3/uL 1.09-3.23 MONO x10^3 (test code = 742-7) 0.66 10*3/uL 0.36-1.02 EOS x10^3 (test code = 711-2) 0.10 10*3/uL 0.06-0.53 BASO x10^3 (test code = 704-7) 0.04 10*3/uL 0.01-0.09 Lab Interpretation (test code = 30375-2) Abnormal [facility]wayNeisseria gonorrhoeae, throat culture 2023-02-21 16:47:00* Test Item Value Reference Range Interpretation Comme nts Neisseria gonorrhoeae, throa t culture (test code = 696-5) NOT DETECTED NOT DETECTED [facility] [id number] 16:47:00* Test Item Value Reference Range Interpretation Comme nts Gonorrhea Culture Rectum (te st code = 698-1) NOT DETECTED NOT DETECTED N [facility] CareNeisseria gonorrhoeae DNA eownp1128-25-72 16:16:00* Test Item Value Reference Range Interpretation Comme nts Neisseria gonorrhoeae DNA pr obe (test code = 81456-8) NOT DETECTED NOT DETECTED N [facility] Carechlamydia DNA pusau6865-37-30 16:16:00* Test Item Value Reference Range Interpretation Comme nts chlamydia DNA probe (test co de = 56077-6) NOT DETECTED NOT DETECTED N [facility] CareNeisseria gonorrhoeae DNA fqzwo5240-84-31 16:16:00* Test Item Value Reference Range Interpretation Comme nts Neisseria gonorrhoeae DNA pr obe (test code = 56527-3) NOT DETECTED NOT DETECTED N [facility] CareHIV-1RNA, serum, by PCR, esaxzxatvina0564-39-75 16:14:00 * Test Item Value Reference Range Interpretation Comme nts HIV-1RNA, serum, by PCR, quantitative (test code = 49149-5) NOT DETECTED copies/mL NOT DETECTED N [facility] corpuscular hemoglobin concentration, [id number] 16:13:00* Test Item Value Reference Range Interpretation Comme [facility] mean corpuscular hemoglobin concentration, RBC (test code = 786-4) 34.2 G/DL 32.0-36.0 N [facility] corpuscular hemoglobin, [id number] 16:13:00* Test Item Value Reference Range Interpretation Comme [facility] mean corpuscular hemoglobin, RBC (test code = 785-6) 31.1 pg 27.0-33.0 N [facility] corpuscular volume, [id number] 16:13:00* Test Item Value Reference Range Interpretation Comme [facility] mean corpuscular volume, RBC (test code = 787-2) 91.0 fL 80.0-100.0 [facility] Carehematocrit, troha6418-11-78 16:13:00* Test Item Value Reference Range Interpretation Comme [facility] hematocrit, blood (test code = 4544-3) 40.4 % 38.5-50. 0 N [facility] Carehemoglobin, xtkgp6531-43-68 16:13:00* Test Item Value Reference Range Interpretation Comme [facility] hemoglobin, blood (test code = 718-7) 13.8 g/dL 13.2-17.1 N [facility] Careerythrocyte (RBC) mcenv2254-02-97 16:13:00* Test Item Value Reference Range Interpretation Comme [facility] erythrocyte (RBC) count (asya t code = 789-8) 4.44 MILLION/UL 4.20-5.80 N [facility] Careleukocyte count, cnlsn6990-21-08 16:13:00* Test Item Value Reference Range Interpretation Comme [facility] leukocyte count, blood (test code = 6690-2) 5.5 THOUSAND/UL 3.8-10.8 N [facility] Carelymphocytes, cbvaunfs2034-89-09 16:13:00* Test Item Value Reference Range Interpretation Comme [facility] lymphocytes, absolute (test code = 92307-4) 2195 CELLS/UL 850-3900 N [facility] CareCD4/CD8 aboci3365-18-20 16:13:00* Test Item Value Reference Range Interpretation Comme nts CD4/CD8 ratio (test code = 99986) 1.18 (unknown unit) 0.86-5.00 N [facility] Careabsolute [id number] 16:13:00* Test Item Value Reference Range Interpretation Comme nts absolute CD8 (test code = 22850) 898 (unknown unit) 180-1170 N [facility] CareT-suppressor cells (CD8) as percent of blood lymphocytes 2023-02-21 16:13:00* Test Item Value Reference Range Interpretation Comme nts T-suppressor cells (CD8) as percent of blood lymphocytes (test code = 3517) 37 % 12-42 N [facility] CareT-helper cells (CD4) podaf1710-28-38 16:13:00* Test Item Value Reference Range Interpretation Comme [facility] T-helper cells (CD4) count (test code = 11728-2) 1060 CELLS/UL 490-1740 N [facility] CareT-helper cells (CD4) as percent of blood lymphocytes 2023-02-21 16:13:00* Test Item Value Reference Range Interpretation Comme nts T-helper cells (CD4) as perc ent of blood lymphocytes (test code = 8123-2) 43 % 30-61 N [facility] Carealanine aminotransferase (SGPT), zrvis8006-76-68 16:13:00 * Test Item Value Reference Range Interpretation Comme [facility] alanine aminotransferase (SG PT), serum (test code = 1742-6) 10 1/L 9-46 N [facility] Careaspartate aminotransferase (SGOT), otbvg9488-40-10 16:13:00* Test Item Value Reference Range Interpretation Comme nts aspartate aminotransferase ( SGOT), serum (test code = 1920-8) 11 1/L 10-40 N [facility] Carealkaline phosphatase, hzpkg7015-26-87 16:13:00* Test Item Value Reference Range Interpretation Comme nts alkaline phosphatase, serum (test code = 1783-0) 67 1/L 36-130 N [facility] Carebilirubin, serum, tlrie6392-00-63 16:13:00* Test Item Value Reference Range Interpretation Comme nts bilirubin, serum, total (asya t code = 1975-2) 0.3 mg/dL 0.2-1.2 N [facility] Healthalbumin/globulin ratio, towjx1768-97-62 16:13:00* Test Item Value Reference Range Interpretation Comme nts albumin/globulin ratio, seru m (test code = 1759-0) 1.8 (calc) 1.0-2.5 N [facility] Careglobulins, serum, diocj5320-76-37 16:13:00* Test Item Value Reference Range Interpretation Comme nts globulins, serum, total (asya t code = 2336-6) 2.5 G/DL (CALC) 1.9-3.7 N [facility] Healthalbumin, wnlqd4958-17-54 16:13:00* Test Item Value Reference Range Interpretation Comme nts albumin, serum (test code = 1751-7) 4.4 g/dL 3.6-5.1 N [facility] Healthprotein, total, tgcdy2067-77-33 16:13:00* Test Item Value Reference Range Interpretation Comme nts protein, total, serum (test code = 2885-2) 6.9 g/dL 6.1-8.1 N [facility] Carecalcium, cfqcj8640-08-32 16:13:00* Test Item Value Reference Range Interpretation Comme nts calcium, serum (test code = 2000-8) 8.9 mg/dL 8.6-10.3 N [facility] Carecarbon dioxide, venous dqtqb0229-21-78 16:13:00* Test Item Value Reference Range Interpretation Comme nts carbon dioxide, venous blood (test code = 2027-1) 23 mmol/L 20-32 N [facility] Carechloride, ngjwr1944-90-06 16:13:00* Test Item Value Reference Range Interpretation Comme nts chloride, serum (test code = 2075-0) 107 mmol/L 98-110 N [facility] Carepotassium, gvbfc5551-98-09 16:13:00* Test Item Value Reference Range Interpretation Comme nts potassium, serum (test code = 2823-3) 4.1 mmol/L 3.5-5.3 N [facility] Caresodium, oswcp7184-50-94 16:13:00* Test Item Value Reference Range Interpretation Comme nts sodium, serum (test code = 2951-2) 137 mmol/L 135-146 N [facility] Careurea nitrogen/creatinine ratio, zkesi6625-67-97 16:13:00 * Test Item Value Reference Range Interpretation Comme nts urea nitrogen/creatinine ratio, serum (test code = 3097-3) NOT APPLICABLE (calc) 6-22 [facility] CareEstimated Glomerular Filtration Rate (calc)2023-02-21 16:13:00* Test Item Value Reference Range Interpretation Comme nts Estimated Glomerular Filtration Rate (calc) (test code = 51092-1) 126 mL/min/{1.73 m2} See_Comment N [Automated message] The system which generated this result transmitted reference range: > OR = 60. The reference range was not used to interpret this result as normal/abnormal. [facility] Carecreatinine, jazkg1063-34-92 16:13:00* Test Item Value Reference Range Interpretation Comme [facility] creatinine, serum (test code = 2160-0) 0.79 mg/dL 0.60-1.24 N [facility] Careurea nitrogen, sztra0315-26-46 16:13:00* Test Item Value Reference Range Interpretation Comme [facility] urea nitrogen, blood (test c ode = 3094-0) 10 mg/dL 7-25 N [facility] Careblood glucose, nvvvls8884-56-63 16:13:00* Test Item Value Reference Range Interpretation Comme [facility] blood glucose, random (test code = 2339-0) 81 mg/dL 65-139 N [facility] Carecholesterol, non-HDL, puyei9844-14-51 16:13:00* Test Item Value Reference Range Interpretation Comme nts cholesterol, non-HDL, total (test code = 66939) 57 MG/DL (CALC) <130 N [facility] Carecholesterol/HDL ratio, serum, lnxnxsh7713-77-19 16:13:00 * Test Item Value Reference Range Interpretation Comme nts cholesterol/HDL ratio, serum , percent (test code = 2404) 2.4 (calc) <5.0 N [facility] CareLDL cholesterol, syfcc3373-17-33 16:13:00* Test Item Value Reference Range Interpretation Comme [facility] LDL cholesterol, serum (test code = 2089-1) 43 MG/DL (CALC) N [facility], clisved8038-89-16 16:13:00* Test Item Value Reference Range Interpretation Comme [facility] triglyceride, serum, fasting (test code = 2571-8) 48 mg/dL <150 N [facility] CareHDL cholesterol, ropnn4724-12-05 16:13:00* Test Item Value Reference Range Interpretation Comme nts HDL cholesterol, serum (test code = 2085-9) 41 mg/dL See_Comment N [Automated Recondoa ge] The system which generated this result transmitted reference range: > OR = 40. The reference range was not used to interpret this result as normal/abnormal. [facility] Carecholesterol, ntzxp1426-43-34 16:13:00* Test Item Value Reference Range Interpretation Comme nts cholesterol, serum (test cod e = 2093-3) 98 mg/dL <200 N [facility] Carerapid plasma reagin antibody, gkvbc6545-37-47 16:13:00* Test Item Value Reference Range Interpretation Comme [facility] rapid plasma reagin antibody , serum (test code = 5291-0) NON-REACTIVE NON-REACTIVE N [facility] Carebasophils as percent of blood leiqusqlck1165-37-81 16:13:00* Test Item Value Reference Range Interpretation Comme [facility] basophils as percent of bloo d leukocytes (test code = 707-0) 0.5 % N [facility] Careeosinophils as percent of blood blnhwoolze8432-14-51 16:13:00* Test Item Value Reference Range Interpretation Comme nts eosinophils as percent of bl ood leukocytes (test code = 714-6) 1.6 % N [facility] Caremonocytes as percent of blood nlpzwnmcso3745-16-18 16:13:00* Test Item Value Reference Range Interpretation Comme [facility] monocytes as percent of bloo d leukocytes (test code = 5905-5) 9.1 % N [facility] Carelymphocytes as percent of blood ftapjdytvs5810-67-32 16:13:00* Test Item Value Reference Range Interpretation Comme nts lymphocytes as percent of bl ood leukocytes (test code = 736-9) 39.9 % N [facility] Careneutrophils as percent of blood khiewqzbmk4475-09-91 16:13:00* Test Item Value Reference Range Interpretation Comme nts neutrophils as percent of bl ood leukocytes (test code = 770-8) 48.9 % N [facility] Carebasophil count, inawbnic2104-13-51 16:13:00* Test Item Value Reference Range Interpretation Comme nts basophil count, absolute (te st code = 23302-3) 28 cells/uL 0-200 N [facility] CareAbsolute Eosinophil elwhc6629-20-09 16:13:00* Test Item Value Reference Range Interpretation Comme nts Absolute Eosinophil count (t est code = 35490-9) 88 cells/mcL 15-500 N [facility] CareAbsolute Monocyte rlqkm9523-78-61 16:13:00* Test Item Value Reference Range Interpretation Comme nts Absolute Monocyte count (asya t code = 58584-8) 501 cells/mcL 200-950 N [facility] CareAbsolute Neutrophil kkmbo8359-28-78 16:13:00* Test Item Value Reference Range Interpretation Comme nts Absolute Neutrophil count (test code = 57539-2) 2690 cells/mcL 0675-0980 N [facility] Caremean platelet btllph1603-93-24 16:13:00* Test Item Value Reference Range Interpretation Comme nts mean platelet volume (test c ode = 776-5) 10.6 fL 7.5-12.5 N [facility] Careplatelet tytlq1636-90-75 16:13:00* Test Item Value Reference Range Interpretation Comme nts platelet count (test code = 777-3) 251 THOUSAND/UL 140-400 N [facility] Carered blood cell distribution igprl2285-09-11 16:13:00* Test Item Value Reference Range Interpretation Comme nts red blood cell distribution width (test code = 788-0) 12.6 % 11.0-15.0 N [facility] CareNeisseria gonorrhoeae, throat iqgtnez5910-73-56 14:01:00 * Test Item Value Reference Range Interpretation Comme nts Neisseria gonorrhoeae, throa t culture (test code = 696-5) NOT DETECTED NOT DETECTED N [facility] CareGonorrhea Culture Sjlrre9543-62-05 14:01:00* Test Item Value Reference Range Interpretation Comme nts Gonorrhea Culture Rectum (te st code = 698-1) NOT DETECTED NOT DETECTED N [facility]HIV-[facility]RNA, serum, by PCR, glycbqubzaad1509-32-79 10:30:00 * Test Item Value Reference Range Interpretation Comme nts HIV-1RNA, serum, by PCR, quantitative (test code = 43718-5) NOT DETECTED copies/mL NOT DETECTED N [facility] Carerapid plasma reagin antibody, dzqqa7838-13-02 10:28:00* Test Item Value Reference Range Interpretation Comme nts rapid plasma reagin antibody , serum (test code = 5291-0) NON-REACTIVE NON-REACTIVE N [facility] Antibody, Signal to Cbf-Cuc5271-39-24 10:28:00* Test Item Value Reference Range Interpretation Comme nts Hepatitis C Antibody, Signal to Cut-Off (test code = 84100-0) <0.02 <1.00 N [facility] Carehepatitis C antibody, diejb4279-67-10 10:28:00* Test Item Value Reference Range Interpretation Comme nts hepatitis C antibody, serum (test code = 5199-5) NON-REACTIVE NON-REACTIVE N [facility] Carebasophils as percent of blood tjrbsijegu9549-17-08 10:28:00* Test Item Value Reference Range Interpretation Comme nts basophils as percent of bloo d leukocytes (test code = 707-0) 0.8 % [facility] percent of blood hwgdjorwrx8937-91-70 10:28:00* Test Item Value Reference Range Interpretation Comme nts eosinophils as percent of bl ood leukocytes (test code = 714-6) 3.0 % [facility] Hospitalmonocytes as percent of blood cuujeniymo6455-36-08 10:28:00* Test Item Value Reference Range Interpretation Comme [facility] monocytes as percent of bloo d leukocytes (test code = 5905-5) 9.0 % [facility] percent of blood lpouqsippj1915-03-40 10:28:00* Test Item Value Reference Range Interpretation Comme nts lymphocytes as percent of bl ood leukocytes (test code = 736-9) 44.1 % [facility]rophils as percent of blood xeirgbmkzv4603-34-54 10:28:00* Test Item Value Reference Range Interpretation Comme nts neutrophils as percent of bl ood leukocytes (test code = 770-8) 43.1 % N [facility] Carebas[facility] count, jrtpvnal7896-13-52 10:28:00* Test Item Value Reference Range Interpretation Comme nts basophil count, absolute (te st code = 19436-5) 40 cells/uL 0-200 [facility]osin[facility] qnadz9346-87-68 10:28:00* Test Item Value Reference Range Interpretation Comme nts Absolute Eosinophil count (t est code = 27560-4) 150 cells/mcL 15-500 [facility] Monocyte avzly9671-53-04 10:28:00* Test Item Value Reference Range Interpretation Comme nts Absolute Monocyte count (asya t code = 49718-3) 450 cells/mcL 200-950 N [facility] Neutrophil lkbsp8908-01-39 10:28:00* Test Item Value Reference Range Interpretation Comme nts Absolute Neutrophil count (test code = 46521-7) 2155 cells/mcL 5922-8694 N [facility] outbwb6502-90-72 10:28:00* Test Item Value Reference Range Interpretation Comme nts mean platelet volume (test c ode = 776-5) 10.4 fL 7.5-12.5 N [facility] Careplatelet eqdty7798-63-01 10:28:00* Test Item Value Reference Range Interpretation Comme nts platelet count (test code = 777-3) 329 THOUSAND/UL 140-400 N [facility] Carered blood cell distribution utkik7024-79-69 10:28:00* Test Item Value Reference Range Interpretation Comme nts red blood cell distribution width (test code = 788-0) 12.5 % 11.0-15.0 N [facility] corpuscular hemoglobin concentration, [id number] 10:28:00* Test Item Value Reference Range Interpretation Comme nts mean corpuscular hemoglobin concentration, RBC (test code = 786-4) 34.6 G/DL 32.0-36.0 N [facility] corpuscular hemoglobin, [id number] 10:28:00* Test Item Value Reference Range Interpretation Comme nts mean corpuscular hemoglobin, RBC (test code = 785-6) 29.8 pg 27.0-33.0 N [facility] Caremean corpuscular volume, [id number] 10:28:00* Test Item Value Reference Range Interpretation Comme [facility] mean corpuscular volume, RBC (test code = 787-2) 86.2 fL 80.0-100.0 N [facility] Carehematocrit, ithlc7274-64-67 10:28:00* Test Item Value Reference Range Interpretation Comme [facility] hematocrit, blood (test code = 4544-3) 43.6 % 38.5-50. 0 N [facility] Carehemoglobin, mvgqu0430-65-22 10:28:00* Test Item Value Reference Range Interpretation Comme [facility] hemoglobin, blood (test code = 718-7) 15.1 g/dL 13.2-17.1 N [facility] Careerythrocyte (RBC) sgzav7134-39-67 10:28:00* Test Item Value Reference Range Interpretation Comme [facility] erythrocyte (RBC) count (asya t code = 789-8) 5.06 MILLION/UL 4.20-5.80 N [facility] Careleukocyte count, tshyd9345-58-99 10:28:00* Test Item Value Reference Range Interpretation Comme [facility] leukocyte count, blood (test code = 6690-2) 5.0 THOUSAND/UL 3.8-10.8 N [facility] Carelymphocytes, rsyliviy6701-57-19 10:28:00* Test Item Value Reference Range Interpretation Comme [facility] lymphocytes, absolute (test code = 82406-6) 2205 CELLS/UL 850-3900 N [facility] CareCD4/CD8 dmajp1062-61-48 10:28:00* Test Item Value Reference Range Interpretation Comme [facility] CD4/CD8 ratio (test code = 00837) 1.36 (unknown unit) 0.86-5.00 N [facility] Careabsolute [id number] 10:28:00* Test Item Value Reference Range Interpretation Comme [facility] absolute CD8 (test code = 35361) 776 (unknown unit) 180-1170 N [facility] CareT-suppressor cells (CD8) as percent of blood lymphocytes 2022-10-02 10:28:00* Test Item Value Reference Range Interpretation Comme [facility] T-suppressor cells (CD8) as percent of blood lymphocytes (test code = 3517) 35 % 12-42 N [facility] CareT-helper cells (CD4) wqhsg0573-11-15 10:28:00* Test Item Value Reference Range Interpretation Comme nts T-helper cells (CD4) count (test code = 04409-4) 1052 CELLS/UL 490-1740 N [facility] CareT-helper cells (CD4) as percent of blood lymphocytes 2022-10-02 10:28:00* Test Item Value Reference Range Interpretation Comme nts T-helper cells (CD4) as perc ent of blood lymphocytes (test code = 8123-2) 48 % 30-61 N [facility] Carealanine aminotransferase (SGPT), qbazw0753-93-30 10:28:00 * Test Item Value Reference Range Interpretation Comme nts alanine aminotransferase (SG PT), serum (test code = 1742-6) 14 1/L 9-46 N [facility] Careaspartate aminotransferase (SGOT), wkcyu4839-38-63 10:28:00* Test Item Value Reference Range Interpretation Comme nts aspartate aminotransferase ( SGOT), serum (test code = 1920-8) 11 1/L 10-40 N [facility] Carealkaline phosphatase, tmkpk3775-21-57 10:28:00* Test Item Value Reference Range Interpretation Comme nts alkaline phosphatase, serum (test code = 1783-0) 75 1/L 36-130 N [facility] Carebilirubin, serum, gwzsy6393-79-66 10:28:00* Test Item Value Reference Range Interpretation Comme nts bilirubin, serum, total (asya t code = 1975-2) 0.3 mg/dL 0.2-1.2 N [facility] Carealbumin/globulin ratio, ogwxu2586-52-21 10:28:00* Test Item Value Reference Range Interpretation Comme [facility] albumin/globulin ratio, seru m (test code = 1759-0) 1.4 (calc) 1.0-2.5 N [facility] Careglobulins, serum, [id number] 10:28:00* Test Item Value Reference Range Interpretation Comme nts globulins, serum, total (asya t code = 2336-6) 2.9 G/DL (CALC) 1.9-3.7 N [facility] Carealbumin, rbwse5960-11-77 10:28:00* Test Item Value Reference Range Interpretation Comme nts albumin, serum (test code = 1751-7) 4.0 g/dL 3.6-5.1 N [facility] Careprotein, total, ekuav9397-32-14 10:28:00* Test Item Value Reference Range Interpretation Comme nts protein, total, serum (test code = 2885-2) 6.9 g/dL 6.1-8.1 N [facility] Carecalcium, dsqtd1289-38-80 10:28:00* Test Item Value Reference Range Interpretation Comme nts calcium, serum (test code = 2000-8) 9.2 mg/dL 8.6-10.3 N [facility] Carecarbon dioxide, venous byvmh3357-18-22 10:28:00* Test Item Value Reference Range Interpretation Comme nts carbon dioxide, venous blood (test code = 2027-1) 30 mmol/L 20-32 N [facility] Carechloride, ruzsk9942-46-18 10:28:00* Test Item Value Reference Range Interpretation Comme nts chloride, serum (test code = 2075-0) 104 mmol/L 98-110 N [facility] Carepotassium, uzzsf8872-99-80 10:28:00* Test Item Value Reference Range Interpretation Comme nts potassium, serum (test code = 2823-3) 4.2 mmol/L 3.5-5.3 N [facility] Caresodium, fubzx5651-40-24 10:28:00* Test Item Value Reference Range Interpretation Comme nts sodium, serum (test code = 2951-2) 140 mmol/L 135-146 N [facility] Careurea nitrogen/creatinine ratio, nrfei4034-92-73 10:28:00 * Test Item Value Reference Range Interpretation Comme nts urea nitrogen/creatinine ratio, serum (test code = 3097-3) NOT APPLICABLE (calc) 6-22 [facility] CareEstimated Glomerular Filtration Rate (calc)2022-10-02 10:28:00* Test Item Value Reference Range Interpretation Comme nts Estimated Glomerular Filtration Rate (calc) (test code = 85121-2) 122 mL/min/{1.73 m2} See_Comment N [Automated message] The system which generated this result transmitted reference range: > OR = 60. The reference range was not used to interpret this result as normal/abnormal. [facility] Carecreatinine, [id number] 10:28:00* Test Item Value Reference Range Interpretation Comme nts creatinine, serum (test code = 2160-0) 0.86 mg/dL 0.60-1.24 N [facility] Careurea nitrogen, llapq2113-55-38 10:28:00* Test Item Value Reference Range Interpretation Comme nts urea nitrogen, blood (test c ode = 3094-0) 11 mg/dL 7-25 N [facility] Careblood glucose, bjxouo5829-91-83 10:28:00* Test Item Value Reference Range Interpretation Comme nts blood glucose, random (test code = 2339-0) 82 mg/dL 65-99 N [facility] Carecholesterol, non-HDL, xkbhz7680-47-11 10:28:00* Test Item Value Reference Range Interpretation Comme nts cholesterol, non-HDL, total (test code = 21552) 70 MG/DL (CALC) <130 N [facility] Carecholesterol/HDL ratio, serum, fvujgaj5261-84-05 10:28:00 * Test Item Value Reference Range Interpretation Comme nts cholesterol/HDL ratio, serum , percent (test code = 2404) 2.9 (calc) <5.0 N [facility] CareLDL cholesterol, sknvq1156-57-74 10:28:00* Test Item Value Reference Range Interpretation Comme [facility] LDL cholesterol, serum (test code = 2089-1) 54 MG/DL (CALC) N [facility] Caretriglyceride, serum, emfgzpp7035-79-35 10:28:00* Test Item Value Reference Range Interpretation Comme [facility] triglyceride, serum, fasting (test code = 2571-8) 80 mg/dL <150 N [facility] CareHDL cholesterol, wbojo2380-74-09 10:28:00* Test Item Value Reference Range Interpretation Comme [facility] HDL cholesterol, serum (test code = 2085-9) 36 mg/dL See_Comment L [Automated messa ge] The system which generated this result transmitted reference range: > OR = 40. The reference range was not used to interpret this result as normal/abnormal. [facility] Carecholesterol, [id number] 10:28:00* Test Item Value Reference Range Interpretation Comme nts cholesterol, serum (test cod e = 2093-3) 106 mg/dL <200 N [facility] Carehepatitis C antibody, [id number] 10:28:00* Test Item Value Reference Range Interpretation Comme nts hepatitis C antibody, serum (test code = 50432-5) NON-REACTIVE NON-REACTIVE N [facility] CareNeisseria gonorrhoeae DNA [id number] 10:26:00* Test Item Value Reference Range Interpretation Comme nts Neisseria gonorrhoeae DNA pr obe (test code = 55023-0) NOT DETECTED NOT DETECTED N [facility] Carechlamydia DNA bwjqq9860-38-87 10:26:00* Test Item Value Reference Range Interpretation Comme nts chlamydia DNA probe (test co de = 90877-1) NOT DETECTED NOT DETECTED N [facility] CareNeisseria gonorrhoeae DNA [id number] 10:26:00* Test Item Value Reference Range Interpretation Comme nts Neisseria gonorrhoeae DNA pr obe (test code = 23510-5) NOT DETECTED NOT DETECTED [facility] (SGPT), mfbbk0844-72-03 12:02:00 * Test Item Value Reference Range Interpretation Comme nts alanine aminotransferase (SG PT), serum (test code = 1742-6) 15 1/L 9-46 N [facility] Careaspartate aminotransferase (SGOT), gmqgt0904-57-79 12:02:00* Test Item Value Reference Range Interpretation Comme nts aspartate aminotransferase ( SGOT), serum (test code = 1920-8) 11 1/L 10-40 N [facility] Carealkaline phosphatase, ywpim3874-82-76 12:02:00* Test Item Value Reference Range Interpretation Comme nts alkaline phosphatase, serum (test code = 1783-0) 83 1/L 36-130 N [facility] Carebilirubin, serum, ubowl5041-67-58 12:02:00* Test Item Value Reference Range Interpretation Comme nts bilirubin, serum, total (asya t code = 1975-2) 0.4 mg/dL 0.2-1.2 N [facility] Carealbumin/globulin ratio, jnejm2034-16-23 12:02:00* Test Item Value Reference Range Interpretation Comme nts albumin/globulin ratio, seru m (test code = 1759-0) 1.6 (calc) 1.0-2.5 N [facility] Healthglobulins, serum, fduap1760-06-12 12:02:00* Test Item Value Reference Range Interpretation Comme nts globulins, serum, total (asya t code = 2336-6) 2.9 G/DL (CALC) 1.9-3.7 N [facility] Healthalbumin, dltmx2065-04-14 12:02:00* Test Item Value Reference Range Interpretation Comme nts albumin, serum (test code = 1751-7) 4.5 g/dL 3.6-5.1 N [facility] Healthprotein, total, gsqqu2582-53-30 12:02:00* Test Item Value Reference Range Interpretation Comme nts protein, total, serum (test code = 2885-2) 7.4 g/dL 6.1-8.1 N [facility] Carecalcium, kxjah9963-16-45 12:02:00* Test Item Value Reference Range Interpretation Comme nts calcium, serum (test code = 2000-8) 9.5 mg/dL 8.6-10.3 N [facility] Carecarbon dioxide, venous dexdz8185-02-00 12:02:00* Test Item Value Reference Range Interpretation Comme nts carbon dioxide, venous blood (test code = 2027-1) 29 mmol/L 20-32 N [facility] Carechloride, nojkx5361-95-03 12:02:00* Test Item Value Reference Range Interpretation Comme nts chloride, serum (test code = 2075-0) 106 mmol/L 98-110 N [facility] Carepotassium, vwfuu9610-03-90 12:02:00* Test Item Value Reference Range Interpretation Comme nts potassium, serum (test code = 2823-3) 4.5 mmol/L 3.5-5.3 N [facility] Caresodium, roasw5805-85-33 12:02:00* Test Item Value Reference Range Interpretation Comme nts sodium, serum (test code = 2951-2) 140 mmol/L 135-146 N [facility] Careurea nitrogen/creatinine ratio, vwgjr9314-16-46 12:02:00 * Test Item Value Reference Range Interpretation Comme nts urea nitrogen/creatinine ratio, serum (test code = 3097-3) NOT APPLICABLE (calc) 6-22 [facility] CareEstimated Glomerular Filtration Rate (calc)2022-06-18 12:02:00* Test Item Value Reference Range Interpretation Comme nts Estimated Glomerular Filtration Rate (calc) (test code = 77207-7) 108 mL/min/{1.73 m2} See_Comment N [Automated message] The system which generated this result transmitted reference range: > OR = 60. The reference range was not used to interpret this result as normal/abnormal. [facility] Carecreatinine, [id number] 12:02:00* Test Item Value Reference Range Interpretation Comme nts creatinine, serum (test code = 2160-0) 0.99 mg/dL 0.60-1.24 N [facility] Careurea nitrogen, pcasl7653-10-04 12:02:00* Test Item Value Reference Range Interpretation Comme nts urea nitrogen, blood (test c ode = 3094-0) 10 mg/dL 7-25 N [facility] Careblood glucose, iefpay5929-52-86 12:02:00* Test Item Value Reference Range Interpretation Comme [facility] blood glucose, random (test code = 2339-0) 81 mg/dL 65-99 N [facility], Signal to Mgh-Ofn1798-52-10 12:02:00* Test Item Value Reference Range Interpretation Comme nts Hepatitis C Antibody, Signal to Cut-Off (test code = 51646-3) 0.18 (unknown unit) <1.00 N [facility] antibody, [id number] 12:02:00* Test Item Value Reference Range Interpretation Comme nts hepatitis C antibody, serum (test code = 5199-5) NON-REACTIVE NON-REACTIVE N [facility] Islandpat[facility] B core antibody, hvnna7495-43-03 12:02:00* Test Item Value Reference Range Interpretation Comme nts hepatitis B core antibody, t otal (test code = 78793-5) NON-REACTIVE NON-REACTIVE N [facility] surface zeiocgw4999-78-79 12:02:00* Test Item Value Reference Range Interpretation Comme nts hepatitis B surface antigen (test code = 58922-2) NON-REACTIVE NON-REACTIVE N [facility] surface huarhaop4868-26-41 12:02:00* Test Item Value Reference Range Interpretation Comme nts hepatitis B surface antibody (test code = 62102-2) REACTIVE NON-REACTIVE A [facility] Island[facility] antibody, [id number] 12:02:00* Test Item Value Reference Range Interpretation Comme nts hepatitis A antibody, total (test code = 56352-6) NON-REACTIVE NON-REACTIVE N [facility] Carecholesterol, non-HDL, ksgxv1468-07-76 12:02:00* Test Item Value Reference Range Interpretation Comme nts cholesterol, non-HDL, total (test code = 37894) 77 MG/DL (CALC) <130 N [facility] Carecholesterol/HDL ratio, serum, iulgkvw2739-78-42 12:02:00 * Test Item Value Reference Range Interpretation Comme nts cholesterol/HDL ratio, serum , percent (test code = 2404) 3.1 (calc) <5.0 N [facility] CareLDL cholesterol, twsmt7607-84-65 12:02:00* Test Item Value Reference Range Interpretation Comme [facility] LDL cholesterol, serum (test code = 2089-1) 64 MG/DL (CALC) N [facility] Caretriglyceride, serum, bqujluw3766-16-86 12:02:00* Test Item Value Reference Range Interpretation Comme nts triglyceride, serum, fasting (test code = 2571-8) 51 mg/dL <150 N [facility] CareHDL cholesterol, ivqqo5104-71-72 12:02:00* Test Item Value Reference Range Interpretation Comme nts HDL cholesterol, serum (test code = 2085-9) 36 mg/dL See_Comment L [Automated Recondoa ge] The system which generated this result transmitted reference range: > OR = 40. The reference range was not used to interpret this result as normal/abnormal. [facility] Carecholesterol, hwulk6907-55-30 12:02:00* Test Item Value Reference Range Interpretation Comme nts cholesterol, serum (test cod e = 2093-3) 113 mg/dL <200 N [facility] Carehepatitis C antibody, obomb5395-82-96 12:02:00* Test Item Value Reference Range Interpretation Comme nts hepatitis C antibody, serum (test code = 36175-8) NON-REACTIVE NON-REACTIVE N [facility] Carerapid plasma reagin antibody, ukoyi6634-75-08 12:02:00* Test Item Value Reference Range Interpretation Comme nts rapid plasma reagin antibody , serum (test code = 5291-0) NON-REACTIVE NON-REACTIVE N [facility] CareHIV-1RNA, serum, by PCR, vtiybwfotmiy7179-76-40 12:02:00 * Test Item Value Reference Range Interpretation Comme nts HIV-1RNA, serum, by PCR, quantitative (test code = 55567-4) NOT DETECTED copies/mL N [facility] Carebasophils as percent of blood bmgwckimsv0956-20-90 12:02:00* Test Item Value Reference Range Interpretation Comme nts basophils as percent of bloo d leukocytes (test code = 707-0) 0.8 % [facility]aleosin[facility] as percent of blood gikatynmlb7418-00-13 12:02:00* Test Item Value Reference Range Interpretation Comme [facility] eosinophils as percent of bl ood leukocytes (test code = 714-6) 1.7 % [facility] Hospitalmonocytes as percent of blood wyajxxcksy8656-70-51 12:02:00* Test Item Value Reference Range Interpretation Comme [facility] monocytes as percent of bloo d leukocytes (test code = 5905-5) 9.8 % [facility]allymphocytes as percent of blood gxbbpthxwh7535-42-55 12:02:00* Test Item Value Reference Range Interpretation Comme nts lymphocytes as percent of bl ood leukocytes (test code = 736-9) 40.8 % [facility] Hospitalneutrophils as percent of blood qstvgmuyrf3023-75-78 12:02:00* Test Item Value Reference Range Interpretation Comme nts neutrophils as percent of bl ood leukocytes (test code = 770-8) 46.9 % [facility] Hospitalbasophil count, sraxhbpe5971-92-68 12:02:00* Test Item Value Reference Range Interpretation Comme nts basophil count, absolute (te st code = 32429-8) 42 cells/uL 0-200 [facility] HospitalAbsolute Eosinophil gdgsd5485-48-21 12:02:00* Test Item Value Reference Range Interpretation Comme nts Absolute Eosinophil count (t est code = 39110-2) 88 cells/mcL 15-500 N [facility] CareAbsolute Monocyte awulx2532-90-09 12:02:00* Test Item Value Reference Range Interpretation Comme nts Absolute Monocyte count (asya t code = 15709-8) 510 cells/mcL 200-950 [facility] Neutrophil thdey3518-33-33 12:02:00* Test Item Value Reference Range Interpretation Comme nts Absolute Neutrophil count (test code = 10079-8) 2439 cells/mcL 2672-0029 N [facility] platelet zjyhed3311-25-85 12:02:00* Test Item Value Reference Range Interpretation Comme nts mean platelet volume (test c ode = 776-5) 10.2 fL 7.5-12.5 N [facility] Careplatelet acwal7200-28-39 12:02:00* Test Item Value Reference Range Interpretation Comme nts platelet count (test code = 777-3) 273 THOUSAND/UL 140-400 N [facility] Carered blood cell distribution uizmg7225-48-29 12:02:00* Test Item Value Reference Range Interpretation Comme [facility] red blood cell distribution width (test code = 788-0) 13.0 % 11.0-15.0 N [facility] corpuscular hemoglobin concentration, [id number] 12:02:00* Test Item Value Reference Range Interpretation Comme nts mean corpuscular hemoglobin concentration, RBC (test code = 786-4) 34.0 G/DL 32.0-36.0 N [facility] corpuscular hemoglobin, [id number] 12:02:00* Test Item Value Reference Range Interpretation Comme nts mean corpuscular hemoglobin, RBC (test code = 785-6) 29.9 pg 27.0-33.0 N [facility] corpuscular volume, [id number] 12:02:00* Test Item Value Reference Range Interpretation Comme nts mean corpuscular volume, RBC (test code = 787-2) 88.1 fL 80.0-100.0 N [facility] Carehematocrit, amhcv1627-62-87 12:02:00* Test Item Value Reference Range Interpretation Comme nts hematocrit, blood (test code = 4544-3) 46.5 % 38.5-50. 0 N [facility] Carehemoglobin, afuji5323-87-51 12:02:00* Test Item Value Reference Range Interpretation Comme nts hemoglobin, blood (test code = 718-7) 15.8 g/dL 13.2-17.1 N [facility] Careerythrocyte (RBC) nbnun7598-34-45 12:02:00* Test Item Value Reference Range Interpretation Comme nts erythrocyte (RBC) count (asya t code = 789-8) 5.28 MILLION/UL 4.20-5.80 N [facility] Careleukocyte count, ixdya9746-68-44 12:02:00* Test Item Value Reference Range Interpretation Comme nts leukocyte count, blood (test code = 6690-2) 5.2 THOUSAND/UL 3.8-10.8 N [facility] Carehyaline casts, nhlak9908-01-00 12:02:00* Test Item Value Reference Range Interpretation Comme nts hyaline casts, urine (test c ode = 5796-8) NONE SEEN NONE SEEN N [facility] Carebacteria, urine rptlswmzao3930-35-75 12:02:00* Test Item Value Reference Range Interpretation Comme nts bacteria, urine microscopy ( test code = 5769-5) NONE SEEN NONE SEEN N [facility] Caresquamous epithelial nkbsz9616-78-13 12:02:00* Test Item Value Reference Range Interpretation Comme nts squamous epithelial cells (test code = 4507) NONE SEEN /HPF See_Comment N [Automated messa ge] The system which generated this result transmitted reference range: < OR = 5. The reference range was not used to interpret this result as normal/abnormal. [facility] CareRBC, Drhlh6913-87-01 12:02:00* Test Item Value Reference Range Interpretation Comme nts RBC, Urine (test code = 29685-9) NONE SEEN /HPF See_Comment N [Automated messa ge] The system which generated this result transmitted reference range: < OR = 2. The reference range was not used to interpret this result as normal/abnormal. [facility] CareWBC urine on dslphazemc1287-66-59 12:02:00* Test Item Value Reference Range Interpretation Comme nts WBC urine on microscopy (test code = 1016) NONE SEEN /HPF See_Comment N [Automated messa ge] The system which generated this result transmitted reference range: < OR = 5. The reference range was not used to interpret this result as normal/abnormal. [facility] Careleukocyte esterase, urine, by kngghntp2582-48-27 12:02:00 * Test Item Value Reference Range Interpretation Comme nts leukocyte esterase, urine, b y dipstick (test code = 5799-2) NEGATIVE NEGATIVE N [facility] Carenitrite, urine, uyaanhomiteunejq6251-04-89 12:02:00* Test Item Value Reference Range Interpretation Comme nts nitrite, urine, semiquantita tive (test code = 5802-4) NEGATIVE NEGATIVE N [facility] Careprotein, urine, semiquantitative (dipstick)2022-06-18 12:02:00* Test Item Value Reference Range Interpretation Comme nts protein, urine, semiquantita tive (dipstick) (test code = 1753-3) NEGATIVE NEGATIVE N [facility] Careoccult blood, stool (E&M)2022-06-18 12:02:00* Test Item Value Reference Range Interpretation Comme nts occult blood, stool (E&M) (t est code = 2335-8) NEGATIVE NEGATIVE N [facility] Careketones, urine, by test jhyza7458-57-26 12:02:00* Test Item Value Reference Range Interpretation Comme nts ketones, urine, by test stri p (test code = 5797-6) NEGATIVE NEGATIVE N [facility] Carebilirubin, auwnh5422-19-71 12:02:00* Test Item Value Reference Range Interpretation Comme nts bilirubin, urine (test code = 5770-3) NEGATIVE NEGATIVE N [facility] Careglucose, urine, qsfwqysgoqpdlyoi2593-86-70 12:02:00* Test Item Value Reference Range Interpretation Comme nts glucose, urine, semiquantita tive (test code = 5792-7) TRACE NEGATIVE [facility], urine, [id number] 12:02:00* Test Item Value Reference Range Interpretation Comme nts pH, urine, semiquantitative (test code = 5803-2) 7.0 (unknown unit) 5.0-8.0 N [facility] Carespecific gravity, [id number] 12:02:00* Test Item Value Reference Range Interpretation Comme nts specific gravity, urine (test code = 5811-5) 1.021 (unknown unit) 1.001-1.035 N [facility] Careappearance, [id number] 12:02:00* Test Item Value Reference Range Interpretation Comme nts appearance, urine (test code = 5767-9) CLEAR CLEAR N [facility] Careurine [id number] 12:02:00* Test Item Value Reference Range Interpretation Comme nts urine color (test code = 5778-6) YELLOW YELLOW N [facility] Carelymphocytes, [id number] 12:02:00* Test Item Value Reference Range Interpretation Comme nts lymphocytes, absolute (test code = 86455-9) 2122 CELLS/UL 850-3900 [facility] [id number] 12:02:00* Test Item Value Reference Range Interpretation Comme nts CD4/CD8 ratio (test code = 07232) 1.00 (unknown unit) 0.86-5.00 [facility] [id number] 12:02:00* Test Item Value Reference Range Interpretation Comme nts absolute CD8 (test code = 99812) 873 (unknown unit) 180-1170 N [facility] Care[facility]-suppressor cells (CD8) as percent of blood lymphocytes 2022-06-18 12:02:00* Test Item Value Reference Range Interpretation Comme nts T-suppressor cells (CD8) as percent of blood lymphocytes (test code = 3517) 38 % 12-42 N [facility] Care[facility]-helper cells (CD4) [id number] 12:02:00* Test Item Value Reference Range Interpretation Comme [facility] T-helper cells (CD4) count ( test code = 56683-9) 871 CELLS/UL 490-1740 N [facility] CareT-[facility] cells (CD4) as percent of blood lymphocytes 2022-06-18 12:02:00* Test Item Value Reference Range Interpretation Comme nts T-helper cells (CD4) as perc ent of blood lymphocytes (test code = 8123-2) 38 % 30-61 N [facility] Notes Date/Time Note Provider Source 2023-04-29 08:00:00 1057-35-92W59:00:00F ormatting of this note is different from the original.Patient presented with specimen for drop-off and was identified by and name. Collection information/ total volume were documented accordingly. The following specimens were sent to [facility] laboratories per lab order on :24 hour urine Random urine Stool 1 Swab Other 64789-0Ekahn FlggCI5316-38-20Y29:53:39Nurse NoteTXT1.2.840.019171.1.13.104.2.7.2 .917846|[id number] for patient sria05723-8Oczzk [id number] Varghese [address] Ii[id number] ERUGMTVYFGSHBJZPCTTHIP9053-55-98P12: 53:391.2.840.728726.1.72.3.15|1.2.84 0.665989.1.13.104.2.7.2.727879_18789 88023 Lilia Infante [facility] 2023-04-26 12:30:00 8716-75-83U26:30:00F ormatting of this note is different from the original.Images from the original note were not included.Venipuncture collection performed by clean technique on the right anticubitus. Total of 1 attempts were made. Slight pressure and a bandage/dressing were applied to the site(s). The patient experienced no complications. The following specimens were processed according to instructions and sent to [facility] laboratories per lab order on 04/26/2023: LT BLUE SST 2 RED LAV 1 PPT 1 DK GREEN (LiHep) 2 Short draw DK GREEN (SodH) ABBASI DK BLUE (K2) DK BLUE (S) ACD Blood Culture NIPT/NTD Patient has been identified by and name and was provided with cup, antiseptic towelette, and clean catch instructions. Unpreserved 2 Urine Culture Aptima tube Other urine 65027-3Czbho DserJC8184-15-03D26:35:23Nurse NoteTXT1.2.840.824215.1.13.104.2.7.2 .494131|[id number] for patient jgfr67420-0Mvtjz [id number] M Warren[id number] YRYELWRZRIHXCLXYWQZCZG4026-54-06F57: 35:231.2.840.419758.1.72.3.15|1.2.84 0.635173.1.13.104.2.7.2.727879_18778 38288 Morris Maldonado [facility] 2023-04-26 12:30:00 9825-29-30G37:30:00F ormatting of this note might be different from the original.Patient was given stool sample supplies and instructions on how to collect ans store. Patient will drop off after collected. 07128-0Jimjk OtqhNJ8900-98-83U01:41:21Nurse NoteTXT1.2.840.868710.1.13.104.2.7.2 .286038|[id number] for patient wybs57432-9Vnliy Note[id number] HJHANPFQRJASHSHVJBJDPL0403-68-84B04: 41:211.2.840.025197.1.72.3.15|1.2.84 0.164220.1.13.104.2.7.2.727879_18778 [address] [facility]"
[2024-02-17] MEDS ORDERED: ONDANSETRON 4 MG/2 ML VIAL ONE (06:26)
[2024-02-17] MEDS ORDERED: FAMOTIDINE 20 MG/2 ML VIAL IV ONE (06:27)
[2024-02-17] MEDS ORDERED: NA CHLORIDE 0.9% 1,000 ML ONE (06:27)
[2024-02-17] MEDS ORDERED: MORPHINE 4 MG/ML SYR ONE (06:27)
[2024-02-17 06:30] LABS: Absolute Eosinophils 0.3 K/uL (0-0.5); Absolute Monocytes 0.8 K/uL (0.1-1.3); Absolute Neutrophil 6.8 K/uL (1.8-8.0); Basophils % 0.3 % (0-1.3); Eosinophils % 2.4 % (0-4.4); Hematocrit 44.6 % (39.6-49.0); Hemoglobin 14.8 g/dL (13.6-17.9); Lymphocytes % 33.3 % (15.3-44.8); MCHC 33.2 g/dL (32.0-36.0); MCV 90.5 fL (80-100); MPV 7.6 fL (7.6-11.3); Monocytes % 6.7 % (3.3-12.3); Neutrophils % 57.3 % (41.7-73.7); Platelets 271 thou/uL (152-406); RBC Red Blood Cell Count 4.93 M/uL (4.33-5.43); Red Cell Distribution Width 13.5 % (12.1-15.2)
[2024-02-17 06:51] LABS: ALT/SGPT 22 U/L (16-61); Albumin 3.9 g/dL (3.4-5.0); Albumin/Globulin Ratio 1.1 (1.1-1.8); Alkaline Phosphatase 70 U/L (45-117); Anion Gap 5.5 mEq/L (5.0-15.0); BUN Blood Urea Nitrogen 12 mg/dL (7-18); Bicarbonate 30 mEq/L (21-32); Bilirubin Total 0.5 mg/dL (0.2-1.0); Globulin 3.6 g/dL (2.3-3.5); Glomerular Filtration Rate 85 ml/min (=/>90); Glucose Level 105 mg/dL (74-106); Lipase 21 U/L (13-75); Potassium 3.5 mEq/L (3.5-5.1); Protein, Total 7.5 g/dL (6.4-8.2); Sodium Level 136 mEq/L (136-145)
[2024-02-17 06:55] LABS: AST/SGOT < 10 U/L (15-37)
[2024-02-17 07:31] LABS: Specific Gravity 1.029 (1.005-1.030); Sqamous Epithelial <5 /HPF (None Seen); Urine Bacteria None Seen /HPF (<20); Urine Bilirubin NEGATIVE (Negative); Urine Blood 3+ (OVER) (Negative); Urine Clarity Extremely Turbid (Clear); Urine Color Yellow (Yellow); Urine Culture Reflex Order NOT NEEDED; Urine Glucose NEGATIVE (Negative); Urine Ketones NEGATIVE (Negative); Urine Microscopic Reflex YN ORDER UMIC; Urine Mucus 2+ /HPF (None Seen); Urine Nitrite NEGATIVE (Negative); Urine Protein TRACE (Negative); Urine RBC >50 /HPF (None Seen); Urine Urobilinogen 1+ (Normal); Urine WBC <5 /HPF (<5); Urine pH 6.5 (5.0-7.0)
--- NOTE | 2024-02-17 07:42 | RAD REPORT ---
EXAM DESCRIPTION: CT - Abdomen Pelvis Wo Contrast - 02/17/2024 6:48 am CLINICAL HISTORY: Abdominal pain. ABD PAIN COMPARISON: No comparisons TECHNIQUE: CT imaging of the abdomen and pelvis was performed without contrast. Solid organ, bowel a nd vascular assessment is limited due to lack of IV and oral contrast. All CT scans are performed using dose optimization technique as appropriate and may include automated exposure control or mA/KV adjustment according to patient size. FINDINGS: The lower lung johnson are clear. The liver, spleen, pancreas, adrenal glands and kidneys are within normal limits for a limited non-co ntrast examination. No bowel obstruction, free air, free fluid or abscess. The appendix is normal. The osseous structures are within normal limits. IMPRESSION: No acute intra-abdominal or pelvic findings. A limited non-contrast examination was performed as detailed.
--- NOTE | 2024-02-17 07:49 | RAD REPORT ---
EXAM DESCRIPTION: US - Scrotum Testicles - 02/17/2024 7:42 am CLINICAL HISTORY: bilateral testicular pain Pain and swelling COMPARISON: No comparisons FINDINGS: The right testicle 3.9 x 3.0 x 2.1 cm. No intratesticular masses or evidence of testicular torsion. The left testicle 3.6 x 2.9 x 2.7 cm. No intratesticular masses or evidence of testicular torsion. 14 x 9 mm right epididymal head cyst. No pathologic fluid collections. IMPRESSION: No testicular torsion or testicular mass is seen. 14 mm right epididymal head cyst.
--- NOTE | 2024-02-17 07:53 | EDPHYS ---
Physician Documentation [facility] Name: Osiel Elmore Age: 28 yrs Sex: Male : 1995 Arrival Date: 02/17/2024 Time: 06:00 Bed 13 Private MD: ED Physician Ana Nova HPI: 02/16 06:21 This 28 yrs old Male presents to ER via Ambulatory with complaints of Abdominal Pain. rn 06:21 The patient presents with abdominal pain that is diffuse. Onset: The symptoms/episode rn began/occurred 1 hour(s) ago. The symptoms radiate to pelvis. The symptoms are described as achy, crampy. Modifying factors: The symptoms are alleviated by nothing, the symptoms are aggravated by movement, touching the area. Severity of pain: At its worst the pain was moderate in the emergency department the pain is unchanged. The patient has experienced a previous episode. Patient reports diffuse abdominal pain that radiates down to groin and scrotum. Denies injury. HIV positive. Reports history of both colitis and epididymitis in the past. Patient reports more pain in the abdomen than in the scrotum. Reports nausea and vomiting, no blood in stool or emesis. Denies diarrhea.. 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 Last tetanus immunization: up to date. - Infectious Disease History:: Denies. - Family history:: not pertinent. - Social history:: Smoking status: Patient reports the use of cigarette tobacco products, denies chronic smoking, but will smoke occasionally, Patient uses street drugs, marijuana, Patient/guardian denies using alcohol. - Hospitalizations: : No recent hospitalization is reported. ROS: 06:21 Constitutional: Negative for fever, chills, and weight loss, Cardiovascular: Negative rn for chest pain, palpitations, and edema, Respiratory: Negative for shortness of breath, cough, wheezing, and pleuritic chest pain, Abdomen/GI: Positive for diffuse abdominal pain and vomiting Back: Negative for injury and pain, : Positive for scrotal pain, negative for swelling MS/Extremity: Negative for injury and deformity, Skin: Negative for injury, rash, and discoloration, Neuro: Negative for headache, weakness, numbness, tingling, and seizure, Exam: 06:21 Constitutional: This is a well developed, well nourished patient who is awake, alert, director 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 ENT: Dry mucous membranes Cardiovascular: Bradycardic, regular. No pulse deficits. Respiratory: Mild tachypnea. No retractions. Speaking full sentences. Abdomen/GI: Soft, tender with guarding in all 4 quadrants without masses MS/ Extremity: Pulses equal, no cyanosis. Neuro: Awake and alert, GCS 15 Vital Signs: 06:17 BP 139 / 100; Pulse 57; Resp 20; Temp 97.9; Pulse Ox 100% ; Weight 58.97 kg; Height 5 kb3 ft. 9 in. ; Pain 10/10; 07:58 BP 116 / 77; Pulse 62; Resp 16; Pulse Ox 100% ; bp 06:17 Body Mass Index 19.20 (58.97 kg, 175.26 cm) kb3 06:17 Pain Scale: Adult kb3 MDM: 06:08 Patient medically screened. rn 07:38 ED course: Patient taken over by me from Dr. Grimaldo at 7 AM at shift change. Patient is sp3 a 28-year-old male with HIV and prior colitis now with diffuse abdominal pain. Initial laboratory values demonstrate no significant findings and CT scan of the abdomen pelvis are pending. Patient is well-appearing and currently not in any significant pain. Ultrasound of the scrotum is also pending given the fact that the pain was radiating into that region. This workup ordered by Dr. Grimaldo will be followed up and if negative patient will be safely discharged home. Patient is okay with the plan as reiterated to him by me.. 02/16 06:16 Order name: CBC with Diff; Complete Time: 06:59 rn 02/16 06:16 Order name: CMP; Complete Time: 06:59 rn 02/16 06:16 Order name: Lipase; Complete Time: 06:59 rn 06/10 06:16 Order name: Urinalysis w/ reflexes; Complete Time: 07:38 rn 02/16 06:16 Order name: CT Abd/Pelvis - Without Contrast; Complete Time: 07:51 rn 02/16 06:16 Order name: US Scrotum Testicles; Complete Time: 07:51 rn 02/16 06:16 Order name: IV Saline Lock; Complete Time: 06:23 rn 02/16 06:16 Order name: Labs collected and sent; Complete Time: 06:23 rn Administered Medications: 06:38 Drug: NS 0.9% IV 1000 ml IV at 1 bolus Per protocol; 1000 mL bolus Route: IV; Rate: 1 jb4 bolus; Site: right antecubital; 08:00 Follow up: IV Status: Completed infusion bp 06:38 Drug: Famotidine IVP 20 mg IVP once; dilute with 10 mL 0.9% NaCl; give over 2 minutes jb4 Route: IVP; Site: right antecubital; 08:00 Follow up: Response: No adverse reaction bp 06:39 Drug: Ondansetron IVP 4 mg IVP once; over 2 minutes Route: IVP; Site: right antecubital;jb4 08:01 Follow up: Response: No adverse reaction bp 06:39 Drug: morphine IVP or IV 4 mg IVP once over 4 mins Route: IVP; Infused Over: 4 mins; jb4 Site: right antecubital; 08:00 Follow up: Response: No adverse reaction bp Disposition Summary: 02/17/24 07:52 Discharge Ordered Notes: Location: Home sp3 Condition: Stable sp3 Diagnosis - Abdominal pain sp3 Followup: sp3 - With: Private Physician - When: Upon discharge from the Emergency Department - Reason: Continuance of care Discharge Instructions: - Discharge Summary Sheet sp3 - Abdominal Pain, Adult sp3 Forms: - Medication Reconciliation Form sp3 - Antibiotic Education sp3 - Prescription Opioid Use sp3 - Patient Portal Instructions sp3 - Leadership Thank You Letter sp3 Signatures: Dispatcher [employer] [facility] Evaristo Grimaldo MD MD rn Bryson, James RN RN jb4 Ana Nova MD MD sp3 Sasha Cerrato RN RN [email or web address] Buddy Gutierrez RN bp Corrections: (The following items were deleted from the chart) 06:17 06:17 Abdomen Pelvis Wo Con+CT.RAD.BRZ ordered. [facility] EDMS 06: Scrotum Testicles+US.RAD.BRZ ordered. EDMS EDMS : Urinalysis+U.LAB.BRZ ordered. EDMS EDMS
--- NOTE | 2024-02-17 07:53 | ER ---
Nurse's Notes [facility] Name: Osiel Elmore Age: 28 yrs Sex: Male : 1995 Arrival Date: 02/17/2024 Time: 06:00 Bed 13 Private MD: Diagnosis: Abdominal pain Presentation: 02/16 06:17 Chief complaint: Patient states: Diffuse abdominal pain, worse in LLQ with N/V since kb3 0500. Coronavirus screen: Vaccine status: Patient reports receiving the 1st dose of the Covid vaccine. Client denies travel out of the [place] in the last 14 days. Ebola Screen: Patient negative for fever greater than or equal to 101.5 degrees Fahrenheit, and additional compatible Ebola Virus Disease symptoms Patient denies exposure to infectious person. Patient denies travel to an Ebola-affected area in the 21 days before illness onset. Initial Sepsis Screen: Does the patient meet any 2 criteria? No. Patient's initial sepsis screen is negative. Does the patient have a suspected source of infection? No. Patient's initial sepsis screen is negative. Risk Assessment: Do you want to hurt yourself or someone else? Patient reports no desire to harm self or others. Onset of symptoms was February 17, 2024 at 05:00. 06:17 Method Of Arrival: Ambulatory [facility] 06:17 Acuity: PAVEL 3 kb3 Triage Assessment: 06:19 General: Appears distressed, uncomfortable, ill, Behavior is calm, cooperative. Pain: kb3 Complains of pain in abdomen and pelvis Pain does not radiate. Pain currently is 10 out of 10 on a pain scale. Quality of pain is described as crampy. GI: Reports lower abdominal pain, upper abdominal pain, constipation, cramping, nausea, vomiting. 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 Last tetanus immunization: up to date. - Infectious Disease History:: Denies. - Family history:: not pertinent. - Social history:: Smoking status: Patient reports the use of cigarette tobacco products, denies chronic smoking, but will smoke occasionally, Patient uses street drugs, marijuana, Patient/guardian denies using alcohol. - Hospitalizations: : No recent hospitalization is reported. Screenin:58 [facility] ED Fall Risk Assessment (Adult) History of falling in the last 3 months, bp including since admission No falls in past 3 months (0 pts). Abuse screen: Denies threats or abuse. Denies injuries from another. Nutritional screening: No deficits noted. Tuberculosis screening: No symptoms or risk factors identified. Assessment: 06:20 General: Appears in no apparent distress. uncomfortable, ill, slender, Behavior is jb4 calm, cooperative. Pain: Complains of pain in abdomen and groin Pain does not radiate. Pain currently is 10 out of 10 on a pain scale. Neuro: Level of Consciousness is awake, alert, obeys commands, Oriented to person, place, time, situation. Cardiovascular: Patient's skin is warm and dry. Respiratory: Airway is patent Respiratory effort is even, unlabored, Respiratory pattern is regular, symmetrical. GI: Abdomen is flat, non-distended, Reports lower abdominal pain, upper abdominal pain, nausea, vomiting. : Reports scrotal pain. EENT: No signs and/or symptoms were reported regarding the EENT system. Derm: Skin is intact, Skin is pink, warm \T\ dry. Musculoskeletal: Circulation, motion, and sensation intact. Range of motion: intact in all extremities. 07:18 Reassessment: Patient and/or family updated on plan of care and expected duration. Pain rs5 level reassessed. Patient is alert, oriented x 3, equal unlabored respirations, skin warm/dry/pink. Vital Signs: 06:17 BP 139 / 100; Pulse 57; Resp 20; Temp 97.9; Pulse Ox 100% ; Weight 58.97 kg; Height 5 kb3 ft. 9 in. ; Pain 10/10; 07:58 BP 116 / 77; Pulse 62; Resp 16; Pulse Ox 100% ; bp 06:17 Body Mass Index 19.20 (58.97 kg, 175.26 cm) kb3 06:17 Pain Scale: Adult kb3 ED Course: 06:03 Patient arrived in ED. gm2 06:08 Evaristo Grimaldo MD is Attending Physician. rn 06:19 Triage completed. kb3 06:19 Arm band placed on right wrist. Patient placed in an exam room, on a stretcher. kb3 06:20 Initial lab(s) drawn, by me, sent to lab. Inserted saline lock: 18 gauge in right jb4 antecubital area, using aseptic technique. Blood collected. 06:23 CBC with Diff Sent. jb4 06:23 CMP Sent. jb4 06:23 Lipase Sent. jb4 06:49 CT Abd/Pelvis - Without Contrast In Process Unspecified. EDMS 06:50 Dread Licea, RN is Primary Nurse. jb4 07:09 Attending Physician role handed off by Evaristo Grimaldo MD sp3 07:09 Ana Nova MD is Attending Physician. sp3 07:39 Primary Nurse role handed off by Dread Licea, RN bp 07:39 Buddy Gutierrez, RN is Primary Nurse. bp 07:44 US Scrotum Testicles In Process Unspecified. EDMS 07:58 No provider procedures requiring assistance completed. IV discontinued, intact, bp bleeding controlled, No redness/swelling at site. Pressure dressing applied. 07:58 Patient has correct armband on for positive identification. Provided Education on: N/A. bp Administered Medications: 06:38 Drug: NS 0.9% IV 1000 ml IV at 1 bolus Per protocol; 1000 mL bolus Route: IV; Rate: 1 jb4 bolus; Site: right antecubital; 08:00 Follow up: IV Status: Completed infusion bp 06:38 Drug: Famotidine IVP 20 mg IVP once; dilute with 10 mL 0.9% NaCl; give over 2 minutes jb4 Route: IVP; Site: right antecubital; 08:00 Follow up: Response: No adverse reaction bp 06:39 Drug: Ondansetron IVP 4 mg IVP once; over 2 minutes Route: IVP; Site: right antecubital;jb4 08:01 Follow up: Response: No adverse reaction bp 06:39 Drug: morphine IVP or IV 4 mg IVP once over 4 mins Route: IVP; Infused Over: 4 mins; jb4 Site: right antecubital; 08:00 Follow up: Response: No adverse reaction bp Outcome: 07:52 Discharge ordered by MD. sp3 07:58 Discharged to home ambulatory, bp 07:58 Condition: stable 07:58 Discharge instructions given to patient, Instructed on discharge instructions, follow up and referral plans. Demonstrated understanding of instructions, follow-up care, 08:07 Patient left the ED. bp Signatures: Dispatcher [employer] EDEvaristo Joyner MD MD rn Bryson, James RN RN jb4 Buddy Gutierrez, RN RN bp Ana Nova MD MD sp3 Sasha Cerrato RN RN kb3 Marv Guardado RN RN rs5 Shae Crockett 2
[2024-02-17 08:23] VITALS: O2SAT 100
[2024-02-17 08:48] VITALS: BP 139/100; TEMP 97.9
== END 2024-02-17 08:07 | disposition home or self-care (01) ==
LOC: ER 06:00
DX: R10.9 Unspecified abdominal pain (principal)
CPT/HCPCS: 36415; 74176; 76870; 80053; 81001; 83690; 85025; 96361; 96374; 96375; 99284; J2405; J7030